=== PATIENT | female | born 1935 | race Caucasian/White ===

== ENCOUNTER 2017-06-13 10:24 | Inpatient (IN) | payer MEDICARE ==
[2017-06-13] MEDS ORDERED: oxyCODONE 5 MG Tab PO SCH (14:00)
[2017-06-13] MEDS: Acetaminophen 500 MG Tab PO SCH ×2 (14:11→21:06)
[2017-06-13] MEDS: oxyCODONE 5 MG Tab PO SCH ×2 (16:57→22:06)
[2017-06-13] MEDS: Ibuprofen 400 MG Tab PO SCH (18:09)
[2017-06-13] MEDS: metFORMIN 500 MG Tab PO SCH (18:10)
[2017-06-13] MEDS: Docusate Sodium 100 MG Cap PO SCH ×2 (21:05→21:13)
[2017-06-13] MEDS: Phenytoin 100 MG Cap.ER PO SCH (21:05)
[2017-06-13] MEDS: Latanoprost 0.005% Ophth Soln 2.5 ML Bottle EYEBOTH SCH (21:06)
[2017-06-13] MEDS: oxyCODONE ER 10 MG TAB.ER PO SCH (21:09)
[2017-06-14] MEDS: oxyCODONE 5 MG Tab PO SCH ×4 (06:04→22:38)
[2017-06-14] MEDS: Pantoprazole 40 MG Tab.CR PO SCH (06:06)
[2017-06-14] MEDS: metFORMIN 500 MG Tab PO SCH ×2 (08:46→18:18)
[2017-06-14] MEDS: Ibuprofen 400 MG Tab PO SCH ×2 (08:47→18:17)
[2017-06-14] MEDS: Calcium Carbonate/Vitamin D3 1250 MG-200 Unit Tab PO SCH (08:49)
[2017-06-14] MEDS: Valsartan 160 MG Tab PO SCH (08:49)
[2017-06-14] MEDS: Docusate Sodium 100 MG Cap PO SCH ×2 (08:49→20:50)
[2017-06-14] MEDS: OXYBUTYNIN TD SCH (08:52)
[2017-06-14] MEDS: Aspirin 81 MG Tab.EC PO SCH (08:52)
[2017-06-14] MEDS: Hydrochlorothiazide 12.5 MG Cap PO SCH (08:54)
[2017-06-14] MEDS: oxyCODONE ER 10 MG TAB.ER PO SCH ×2 (08:59→20:50)
[2017-06-14] MEDS ORDERED: HYDROCHLOROTHIAZIDE PO SCH (09:00)
[2017-06-14] MEDS ORDERED: VALSARTAN PO SCH (09:00)
[2017-06-14] MEDS ORDERED: Non-Formulary Medication 1 Each (Lutein [Lutein] 6 MG) PO SCH (09:00)
[2017-06-14] MEDS: Acetaminophen 500 MG Tab PO SCH ×3 (09:01→20:51)
[2017-06-14] MEDS: Cholecalciferol (Vitamin D3) 1,000 Unit Tab PO SCH (09:02)
[2017-06-14] MEDS: Multivitamins, Therapeutic with Minerals Tab PO SCH (09:03)
[2017-06-14] MEDS: Phenytoin 100 MG Cap.ER PO SCH (20:51)
[2017-06-14] MEDS: Latanoprost 0.005% Ophth Soln 2.5 ML Bottle EYEBOTH SCH (20:52)
[2017-06-15] MEDS: oxyCODONE 5 MG Tab PO SCH ×4 (06:10→21:59)
[2017-06-15] MEDS: Pantoprazole 40 MG Tab.CR PO SCH (06:10)
[2017-06-15] MEDS: Ibuprofen 400 MG Tab PO SCH ×2 (08:51→17:51)
[2017-06-15] MEDS: OXYBUTYNIN TD SCH (08:52)
[2017-06-15] MEDS: Aspirin 81 MG Tab.EC PO SCH (08:52)
[2017-06-15] MEDS: Cholecalciferol (Vitamin D3) 1,000 Unit Tab PO SCH (08:53)
[2017-06-15] MEDS: Docusate Sodium 100 MG Cap PO SCH ×2 (08:53→21:47)
[2017-06-15] MEDS: Multivitamins, Therapeutic with Minerals Tab PO SCH (08:53)
[2017-06-15] MEDS: Acetaminophen 500 MG Tab PO SCH ×3 (08:54→21:50)
[2017-06-15] MEDS: metFORMIN 500 MG Tab PO SCH ×2 (09:10→17:51)
[2017-06-15] MEDS: Hydrochlorothiazide 12.5 MG Cap PO SCH (09:11)
[2017-06-15] MEDS: Valsartan 160 MG Tab PO SCH (09:11)
[2017-06-15] MEDS: Calcium Carbonate/Vitamin D3 1250 MG-200 Unit Tab PO SCH (09:11)
[2017-06-15] MEDS: oxyCODONE ER 10 MG TAB.ER PO SCH ×2 (09:14→21:58)
[2017-06-15] MEDS: levETIRAcetam 250 MG Tab PO SCH ×2 (09:15→21:48)
[2017-06-15] MEDS: Calcitonin (Salmon) Nasal Spray 3.7 ML Bottle NAS SCH (09:16)
[2017-06-15] MEDS: Phenytoin 100 MG Cap.ER PO SCH (21:49)
[2017-06-15] MEDS: Latanoprost 0.005% Ophth Soln 2.5 ML Bottle EYEBOTH SCH (21:50)
[2017-06-16] MEDS: Pantoprazole 40 MG Tab.CR PO SCH (06:47)
[2017-06-16] MEDS: oxyCODONE 5 MG Tab PO SCH ×4 (06:47→22:22)
[2017-06-16] MEDS: metFORMIN 500 MG Tab PO SCH ×2 (09:07→17:43)
[2017-06-16] MEDS: Ibuprofen 400 MG Tab PO SCH ×2 (09:08→17:43)
[2017-06-16] MEDS: Calcium Carbonate/Vitamin D3 1250 MG-200 Unit Tab PO SCH (09:10)
[2017-06-16] MEDS: Docusate Sodium 100 MG Cap PO SCH ×2 (09:10→22:22)
[2017-06-16] MEDS: Calcitonin (Salmon) Nasal Spray 3.7 ML Bottle NAS SCH (09:10)
[2017-06-16] MEDS: Acetaminophen 500 MG Tab PO SCH ×3 (09:11→22:20)
[2017-06-16] MEDS: Valsartan 160 MG Tab PO SCH (09:11)
[2017-06-16] MEDS: Aspirin 81 MG Tab.EC PO SCH (09:12)
[2017-06-16] MEDS: levETIRAcetam 250 MG Tab PO SCH ×2 (09:12→22:21)
[2017-06-16] MEDS: OXYBUTYNIN TD SCH (09:12)
[2017-06-16] MEDS: Hydrochlorothiazide 12.5 MG Cap PO SCH (09:12)
[2017-06-16] MEDS: Multivitamins, Therapeutic with Minerals Tab PO SCH (09:13)
[2017-06-16] MEDS: Cholecalciferol (Vitamin D3) 1,000 Unit Tab PO SCH (09:13)
[2017-06-16] MEDS: oxyCODONE ER 10 MG TAB.ER PO SCH ×2 (09:35→22:21)
[2017-06-16] MEDS: Phenytoin 100 MG Cap.ER PO SCH (22:19)
[2017-06-16] MEDS: Latanoprost 0.005% Ophth Soln 2.5 ML Bottle EYEBOTH SCH (22:20)
[2017-06-17] MEDS: Pantoprazole 40 MG Tab.CR PO SCH (06:50)
[2017-06-17] MEDS: oxyCODONE 5 MG Tab PO SCH ×3 (06:54→17:17)
[2017-06-17] MEDS: metFORMIN 500 MG Tab PO SCH ×2 (08:25→18:38)
[2017-06-17] MEDS: Ibuprofen 400 MG Tab PO SCH (08:26)
[2017-06-17] MEDS: Docusate Sodium 100 MG Cap PO SCH ×2 (08:27→20:27)
[2017-06-17] MEDS: Calcium Carbonate/Vitamin D3 1250 MG-200 Unit Tab PO SCH (08:27)
[2017-06-17] MEDS: Valsartan 160 MG Tab PO SCH (08:28)
[2017-06-17] MEDS: Hydrochlorothiazide 12.5 MG Cap PO SCH (08:29)
[2017-06-17] MEDS: Aspirin 81 MG Tab.EC PO SCH (08:30)
[2017-06-17] MEDS: levETIRAcetam 250 MG Tab PO SCH (08:31)
[2017-06-17] MEDS: Calcitonin (Salmon) Nasal Spray 3.7 ML Bottle NAS SCH (08:32)
[2017-06-17] MEDS: Acetaminophen 500 MG Tab PO SCH ×3 (08:33→20:29)
[2017-06-17] MEDS: Multivitamins, Therapeutic with Minerals Tab PO SCH (08:33)
[2017-06-17] MEDS: Cholecalciferol (Vitamin D3) 1,000 Unit Tab PO SCH (08:33)
[2017-06-17] MEDS: OXYBUTYNIN TD SCH (08:42)
[2017-06-17] MEDS: oxyCODONE ER 10 MG TAB.ER PO SCH (08:47)
--- NOTE | 2017-06-17 09:31 | PCM.HP ---
H&P History of Present Illness - General Date of Service: 06/17/17 Admit Problem/Dx: Admission Diagnosis/Problem Admission Diagnosis/Problem Back pain Source of Information: Patient, Old Records - History of Present Illness Initial Comments - Free Text/Narative: 82-year-old female admitted to swing bed for rehabilitation. She has a history of chronic back pain was [place] last week due to pelvic pain and sacral pain and was found to have pelvic insufficiency fractures. This is due to severe osteoporosis. Her pain is managed oxycodone but she still complains of significant pain on movement. To gets down the right leg. She also has a history of type 2 diabetes, hypertension, stable she has been constipated chronically because of acute use. She denies any fever chills or urinary symptoms. She has a history of seizure disorder possibly from a CVA 9 years ago and has been taking Dilantin. This was discontinued the [facility] and she is currently not Because it is thought to contribute to osteoporosis. Disposition in view of the history and physical and discharge summary, calcitonin was started for pain control but this was discontinued on discharge because it was not helping. Lower Back Pain Score (Numeric/FACES): 4 saccral area Pain Score (Numeric/FACES): 10 denies when asked Pain Score (Numeric/FACES): 0 - Related Data Allergies/Adverse Reactions: Allergies Allergy/AdvReac Type Severity Reaction Status Date / Time Sulfa (Sulfonamide Allergy Hives Verified 06/13/17 13:24 Antibiotics) Home Medications: Home Meds Acetaminophen [Acetaminophen Extra Strength] 1,000 mg PO TID 06/13/17 [History] Aspirin [Halfprin] 81 mg PO DAILY 06/13/17 [History] Calcium Carbonate/Vitamin D3 [Calcium 600 + Vit D 400 Tablet] 1 each PO DAILY [History] Cholecalciferol (Vitamin D3) [Vitamin D3] 2,000 unit PO DAILY 06/13/17 [History] Docusate Sodium [Colace] 100 mg PO BID 06/13/17 [History] Ibuprofen 400 mg PO BIDMEALS 06/13/17 [History] Latanoprost [Xalatan 0.005% Ophth Soln] 1 drop EYEBOTH BEDTIME 06/13/17 [History ] Lutein 6 mg PO DAILY 06/13/17 [History] Multivit-Min/FA/Lycopene/Lut [Hm Complete 50+ Tablet] 1 each PO DAILY 06/13/17 [ History] Omeprazole 20 mg PO DAILY@0600 06/13/17 [History] Oxybutynin Chloride [Gelnique] 1 gm TD DAILY 06/13/17 [History] Phenytoin Sodium Extended [Dilantin] 300 mg PO BEDTIME 06/13/17 [History] Solifenacin [Vesicare] 5 mg PO DAILY 06/13/17 [History] Valsartan/Hydrochlorothiazide [Diovan Hct 160-12.5 mg Tab] 1 each PO DAILY 06/13 [History] metFORMIN [Glucophage] 500 mg PO BIDMEALS 06/13/17 [History] oxyCODONE 7.5 mg PO QID 06/13/17 [History] oxyCODONE ER [OxyCONTIN] 10 mg PO BIDMEALS 06/13/17 [History] Past Medical History HEENT History: Reports: Cataract Cardiovascular History: Reports: Hypertension Respiratory History: Reports: Asthma Genitourinary History: Reports: Urinary Incontinence [employer] History: Reports: Musculoskeletal History: Reports: Fracture, Other (See Below) Other Musculoskeletal History: L4 Compression Fractures. Neurological History: Reports: CVA Endocrine/Metabolic History: Reports: Diabetes, Type II Oncologic (Cancer) History: Reports: Uterine - Infectious Disease History Infectious Disease History: Reports: Chicken Pox, Shingles - Past Surgical History Head Surgeries/Procedures: Reports: None Female Surgical History: Reports: Hysterectomy Endocrine Surgical History: Reports: None Neurological Surgical History: Reports: None Musculoskeletal Surgical History: Reports: None, Other (See Below) Other Musculoskeletal Surgeries/Procedures:: Pin in L) Hip. Social & Family History - Family History Family Medical History: Noncontributory - Tobacco Use Smoking Status *Q: Never Smoker Years of Tobacco use: 10 Used Tobacco, but Quit: Yes Month Tobacco Last Used: YEARS AGO Second Hand Smoke Exposure: No - Caffeine Use Caffeine Use: Reports: Coffee - Recreational Drug Use Recreational Drug Use: No H&P Review of Systems - Review of Systems: Review Of Systems: ROS reveals no pertinent complaints other than HPI. Exam - Exam Exam: See Below - Vital Signs Vital Signs: Last Vital Signs Temp 98 F 06/16/17 08:00 Pulse 70 06/16/17 08:00 Resp 18 06/16/17 08:00 BP 154/68 H 06/17/17 08:28 Pulse Ox 94 L 06/15/17 09:10 Weight: 65.998 kg - Exam General: Alert, Oriented, 4 HEENT: PERRLA, Hearing Intact, Mucosa Moist & [place], Nares Patent, Normal Nasal Septum, Posterior Pharynx Clear, Conjunctiva Clear, EOMI, EACs Clear, TMs Clear Neck: Supple, Trachea Midline, 2 Lungs: Clear to Auscultation, Normal Respiratory Effort Cardiovascular: Regular Rate, Regular Rhythm GI/Abdominal Exam: Normal Bowel Sounds, Soft, Non-Tender, No Organomegaly, No Distention, No Abnormal Bruit, No Mass, Pelvis Stable (Female) Exam: Deferred Rectal (Female) Exam: Decreased Rectal Tone Back Exam: Muscle Spasm, Vertebral Tenderness Extremities: Normal Inspection, Normal Range of Motion, Non-Tender, No Pedal Edema, Normal Capillary Refill Skin: Warm, Dry, Intact Neurological: Cranial Nerves Intact, Reflexes Equal Bilateral Neuro Extensive - Mental Status: Alert, Oriented x3, Normal Mood/Affect, Normal Cognition Neuro Extensive - Motor, Sensory, Reflexes: CN II-XII Intact, Normal Gait, Normal Reflexes Psychiatric: Alert, Normal Affect, Normal Mood - Patient Data Lab Results Last 24 hrs: Laboratory Results - last 24 hr 06/17/17 Range/Units 06:48 POC Glucose 108 (80-116) mg/dL *Q Meaningful Use (ADM) - VTE *Q VTE Criteria *Q: - Stroke *Q Stroke Criteria *Q: - AMI *Q AMI Criteria *Q: - Problem List (1) Osteoporosis SNOMED Code(s): 76042057 ICD Code: M81.0 - AGE-RELATED OSTEOPOROSIS W/O CURRENT PATHOLOGICAL FRACTURE Status: Acute Current Visit: Yes Qualifiers: Osteoporosis type: age-related (2) Insufficiency fracture of pelvis SNOMED Code(s): 980799134 ICD Code: M84.454A - PATHOLOGICAL FRACTURE, PELVIS, INIT ENCNTR FOR FRACTURE Status: Acute Current Visit: Yes Qualifiers: Encounter type: subsequent encounter (3) HTN (hypertension) SNOMED Code(s): 18428385 ICD Code: I10 - ESSENTIAL (PRIMARY) HYPERTENSION Status: Chronic Current Visit: Yes Qualifiers: Hypertension type: essential hypertension Qualified Code(s): I10 - Essential (primary) hypertension (4) Constipation SNOMED Code(s): 79831426 ICD Code: K59.00 - CONSTIPATION, UNSPECIFIED Status: Acute Current Visit : Yes Qualifiers: Constipation type: drug induced constipation Qualified Code(s): K59.03 - Drug induced constipation (5) Diabetes type 2, controlled SNOMED Code(s): 57675130 ICD Code: E11.9 - TYPE 2 DIABETES MELLITUS WITHOUT COMPLICATIONS Status: Chronic Current Visit: Yes Qualifiers: Diabetes mellitus complication status: without complication (6) Chronic back pain greater than 3 months duration SNOMED Code(s): 278791532 ICD Code: M54.9 - DORSALGIA, UNSPECIFIED; G89.29 - OTHER CHRONIC PAIN Status: Chronic Current Visit: Yes Problem List Initiated/Reviewed/Updated: Yes Orders Last 24hrs: Active Orders 24 hr Category Date Time Status Alendronate [Fosamax] Med 06/17/17 09:30 Ordered 70 mg PO Q7D@0600 Celecoxib [CeleBREX] Med 06/17/17 09:30 Ordered 200 mg PO BID DULoxetine [Cymbalta] Med 06/17/17 09:30 Ordered 30 mg PO DAILY Phenytoin Med 07/11/17 21:00 Active 100 mg PO BEDTIME Phenytoin Med 06/27/17 21:00 Active 200 mg PO BEDTIME Medication Orders Acetaminophen (Tylenol Extra Strength) 1,[address] [facility] Last Admin: 06/17/17 08:33 Dose: 1,000 mg Admin: 06/16/17 22:20 Dose: 1,000 mg Admin: 06/16/17 13:45 Dose: 1,000 mg Admin: 06/16/17 09:11 Dose: 1,000 mg Admin: 06/15/17 21:50 Dose: 1,000 mg Admin: 06/15/17 14:24 Dose: 1,000 mg Admin: 06/15/17 08:54 Dose: 1,000 mg Admin: 06/14/17 20:51 Dose: 1,000 mg Admin: 06/14/17 13:33 Dose: 1,000 mg Admin: 06/14/17 09:01 Dose: 1,000 mg Admin: 06/13/17 21:06 Dose: 1,000 mg Admin: 06/13/17 14:11 Dose: 1,000 mg Alendronate Sodium (Fosamax) 70 mg PO Q7D@0600 [facility] Aspirin (Halfprin) [address] [facility] Last Admin: 06/17/17 08:30 Dose: 81 mg Admin: 06/16/17 09:12 Dose: 81 mg Admin: 06/15/17 08:52 Dose: 81 mg Admin: 06/14/17 08:52 Dose: 81 mg Calcium Carbonate (Calcium Carbonate/Vitamin D 1250 Mg-200 Unit) [address] [facility] Last Admin: 06/17/17 08:27 Dose: 1 tab Admin: 06/16/17 09:10 Dose: 1 tab Admin: 06/15/17 09:11 Dose: 1 tab Admin: 06/14/17 08:49 Dose: 1 tab Cholecalciferol (Vitamin D3) 2,[address] [facility] Last Admin: 06/17/17 08:33 Dose: 2,000 units Admin: 06/16/17 09:13 Dose: 2,000 units Admin: 06/15/17 08:53 Dose: 2,000 units Admin: 06/14/17 09:02 Dose: 2,000 units Docusate Sodium (Colace) [address] [facility] Last Admin: 06/17/17 08:27 Dose: 100 mg Admin: 06/16/17 22:22 Dose: 100 mg Admin: 06/16/17 09:10 Dose: 100 mg Admin: 06/15/17 21:47 Dose: 100 mg Admin: 06/15/17 08:53 Dose: 100 mg Admin: 06/14/17 20:50 Dose: Not Given Admin: 06/14/17 08:49 Dose: Not Given Admin: 06/13/17 21:13 Dose: Not Given Duloxetine HCl (Cymbalta) [address] [facility] Hydrochlorothiazide (Hydrochlorothiazide) 12.[address] [facility] Last Admin: 06/17/17 08:29 Dose: 12.5 mg Admin: 06/16/17 09:12 Dose: 12.5 mg Admin: 06/15/17 09:11 Dose: 12.5 mg Admin: 06/14/17 08:54 Dose: 12.5 mg Latanoprost (Xalatan 0.005% Ophth Soln) [address] [facility] Last Admin: 06/16/17 22:20 Dose: 1 drop Admin: 06/15/17 21:50 Dose: 1 drop Admin: 06/14/17 20:52 Dose: 1 drop Admin: 06/13/17 21:06 Dose: 1 drop Lutein (Lutein) [address] [facility] Last Admin: 06/17/17 08:31 Dose: 10 mg Admin: 06/16/17 09:12 Dose: 10 mg Admin: 06/15/17 09:16 Dose: 10 mg Metformin HCl (Glucophage) [address] [facility] Last Admin: 06/17/17 08:25 Dose: 500 mg Admin: 06/16/17 17:43 Dose: 500 mg Admin: 06/16/17 09:07 Dose: 500 mg Admin: 06/15/17 17:51 Dose: 500 mg Admin: 06/15/17 09:10 Dose: 500 mg Admin: 06/14/17 18:18 Dose: 500 mg Admin: 06/14/17 08:46 Dose: 500 mg Admin: 06/13/17 18:10 Dose: 500 mg Multivitamins/Minerals (Vitamins And Minerals) [address] [facility] Last Admin: 06/17/17 08:33 Dose: 1 tab Admin: 06/16/17 09:13 Dose: 1 tab Admin: 06/15/17 08:53 Dose: 1 tab Admin: 06/14/17 09:03 Dose: 1 tab Oxybutynin Chloride (Gelnique) [address] [facility] Last Admin: 06/17/17 08:42 Dose: 30 gm Admin: 06/16/17 09:12 Dose: 30 gm Admin: 06/15/17 08:52 Dose: 30 gm Admin: 06/14/17 08:52 Dose: 30 gm Oxycodone HCl (Oxycontin) [address] [facility] Last Admin: 06/17/17 08:47 Dose: 10 mg Admin: 06/16/17 22:21 Dose: 10 mg Admin: 06/16/17 09:35 Dose: 10 mg Admin: 06/15/17 21:58 Dose: 10 mg Admin: 06/15/17 09:14 Dose: 10 mg Admin: 06/14/17 20:50 Dose: 10 mg Admin: 06/14/17 08:59 Dose: 10 mg Admin: 06/13/17 21:09 Dose: 10 mg Oxycodone HCl (Oxycodone) 7.5 mg PO 0600,1300,1700,2200 [facility] Last Admin: 06/17/17 06:54 Dose: 7.5 mg Admin: 06/16/17 22:22 Dose: 7.5 mg Admin: 06/16/17 17:43 Dose: 7.5 mg Admin: 06/16/17 13:43 Dose: 7.5 mg Admin: 06/16/17 06:47 Dose: 7.5 mg Admin: 06/15/17 21:59 Dose: 7.5 mg Admin: 06/15/17 17:13 Dose: 7.5 mg Admin: 06/15/17 13:09 Dose: 7.5 mg Admin: 06/15/17 06:10 Dose: 7.5 mg Admin: 06/14/17 22:38 Dose: 7.5 mg Admin: 06/14/17 17:06 Dose: 7.5 mg Admin: 06/14/17 13:32 Dose: 7.5 mg Admin: 06/14/17 06:04 Dose: 7.5 mg Admin: 06/13/17 22:06 Dose: 7.5 mg Admin: 06/13/17 16:57 Dose: 7.5 mg Pantoprazole Sodium (Protonix) 40 mg PO DAILY@0600 [facility] Stop: 06/27/17 06:01 Last Admin: 06/17/17 06:50 Dose: 40 mg Admin: 06/16/17 06:47 Dose: 40 mg Admin: 06/15/17 06:10 Dose: 40 mg Admin: 06/14/17 06:06 Dose: 40 mg Phenytoin Sodium (Phenytoin) 300 mg PO BEDTIME [facility] Stop: 06/26/17 21:01 Last Admin: 06/16/17 22:19 Dose: 300 mg Admin: 06/15/17 21:49 Dose: 300 mg Admin: 06/14/17 20:51 Dose: 300 mg Admin: 06/13/17 21:05 Dose: 300 mg Phenytoin Sodium (Phenytoin) 200 mg PO BEDTIME [facility] Stop: 07/10/17 21:01 Phenytoin Sodium (Phenytoin) 100 mg PO BEDTIME [facility] Stop: 07/24/17 21:01 Solifenacin (Vesicare) [address] [facility] Last Admin: 06/17/17 08:33 Dose: 5 mg Admin: 06/16/17 09:12 Dose: 5 mg Admin: 06/15/17 09:17 Dose: 5 mg Admin: 06/14/17 09:02 Dose: 5 mg Valsartan (Diovan) 160 mg PO DAILY [facility] Last Admin: 06/17/17 08:28 Dose: 160 mg Admin: 06/16/17 09:11 Dose: 160 mg Admin: 06/15/17 09:11 Dose: 160 mg Admin: 06/14/17 08:49 Dose: 160 mg Assessment/Plan Comment:: I have discontinued Keppra, and calcitonin. I will also discontinue Motrin in favor of Celebrex for chronic pain. Additionally have added Cymbalta to help with the pain. I will treat the osteoporosis with Fosamax every week. Physical and open patient therapy on board to help with rehabilitation. MiraLAX will be uses when necessary to help with constipation.
[2017-06-17] MEDS ORDERED: Polyethylene Glycol 3350 Powder 17 GM Packet PO PRN (09:32)
[2017-06-17] MEDS: Celecoxib 200 MG Cap PO SCH ×2 (10:38→20:27)
[2017-06-17] MEDS: DULoxetine 30 MG Cap PO SCH (10:38)
[2017-06-17] MEDS: fentaNYL 25 MCG/HR Transdermal Patch TRDERM SCH (16:48)
[2017-06-17] MEDS: Phenytoin 100 MG Cap.ER PO SCH (20:28)
[2017-06-17] MEDS: Latanoprost 0.005% Ophth Soln 2.5 ML Bottle EYEBOTH SCH (20:30)
[2017-06-17] MEDS: oxyCODONE 5 MG Tab PO PRN (22:06)
[2017-06-18] MEDS: Alendronate 70 MG Tab PO SCH (05:11)
[2017-06-18] MEDS: Pantoprazole 40 MG Tab.CR PO SCH (06:12)
[2017-06-18] MEDS: metFORMIN 500 MG Tab PO SCH ×2 (10:18→17:37)
[2017-06-18] MEDS: Calcium Carbonate/Vitamin D3 1250 MG-200 Unit Tab PO SCH (10:19)
[2017-06-18] MEDS: Celecoxib 200 MG Cap PO SCH ×2 (10:19→20:35)
[2017-06-18] MEDS: Docusate Sodium 100 MG Cap PO SCH ×2 (10:20→20:35)
[2017-06-18] MEDS: Valsartan 160 MG Tab PO SCH (10:20)
[2017-06-18] MEDS: DULoxetine 30 MG Cap PO SCH (10:20)
[2017-06-18] MEDS: OXYBUTYNIN TD SCH (10:22)
[2017-06-18] MEDS: Aspirin 81 MG Tab.EC PO SCH (10:24)
[2017-06-18] MEDS: Multivitamins, Therapeutic with Minerals Tab PO SCH (10:24)
[2017-06-18] MEDS: Hydrochlorothiazide 25 MG Tab PO SCH (10:25)
[2017-06-18] MEDS: Acetaminophen 500 MG Tab PO SCH ×3 (10:25→20:36)
[2017-06-18] MEDS: Cholecalciferol (Vitamin D3) 1,000 Unit Tab PO SCH (10:26)
[2017-06-18] MEDS: oxyCODONE 5 MG Tab PO PRN ×2 (10:29→17:37)
[2017-06-18] MEDS: Latanoprost 0.005% Ophth Soln 2.5 ML Bottle EYEBOTH SCH (20:36)
[2017-06-18] MEDS: Phenytoin 100 MG Cap.ER PO SCH (20:36)
[2017-06-19] MEDS: Pantoprazole 40 MG Tab.CR PO SCH (05:34)
[2017-06-19] MEDS: oxyCODONE 5 MG Tab PO PRN ×3 (05:34→21:54)
[2017-06-19] MEDS: metFORMIN 500 MG Tab PO SCH ×2 (07:57→18:16)
[2017-06-19] MEDS: Docusate Sodium 100 MG Cap PO SCH ×2 (08:55→20:15)
[2017-06-19] MEDS: Calcium Carbonate/Vitamin D3 1250 MG-200 Unit Tab PO SCH (08:55)
[2017-06-19] MEDS: DULoxetine 30 MG Cap PO SCH (08:55)
[2017-06-19] MEDS: Celecoxib 200 MG Cap PO SCH ×2 (08:55→20:16)
[2017-06-19] MEDS: OXYBUTYNIN TD SCH (08:56)
[2017-06-19] MEDS: Valsartan 160 MG Tab PO SCH (08:56)
[2017-06-19] MEDS: Acetaminophen 500 MG Tab PO SCH ×3 (08:57→20:13)
[2017-06-19] MEDS: Cholecalciferol (Vitamin D3) 1,000 Unit Tab PO SCH (08:57)
[2017-06-19] MEDS: Multivitamins, Therapeutic with Minerals Tab PO SCH (08:57)
[2017-06-19] MEDS: Aspirin 81 MG Tab.EC PO SCH (08:57)
[2017-06-19] MEDS: Hydrochlorothiazide 25 MG Tab PO SCH (08:57)
[2017-06-19] MEDS: Latanoprost 0.005% Ophth Soln 2.5 ML Bottle EYEBOTH SCH (20:13)
[2017-06-19] MEDS: Phenytoin 100 MG Cap.ER PO SCH (20:14)
[2017-06-20] MEDS: Pantoprazole 40 MG Tab.CR PO SCH (07:00)
[2017-06-20] MEDS: metFORMIN 500 MG Tab PO SCH ×2 (08:17→17:21)
[2017-06-20] MEDS: Celecoxib 200 MG Cap PO SCH ×2 (08:17→21:59)
[2017-06-20] MEDS: Valsartan 160 MG Tab PO SCH (08:18)
[2017-06-20] MEDS: Aspirin 81 MG Tab.EC PO SCH (08:18)
[2017-06-20] MEDS: Calcium Carbonate/Vitamin D3 1250 MG-200 Unit Tab PO SCH (08:18)
[2017-06-20] MEDS: Docusate Sodium 100 MG Cap PO SCH ×2 (08:18→21:59)
[2017-06-20] MEDS: DULoxetine 30 MG Cap PO SCH (08:18)
[2017-06-20] MEDS: Multivitamins, Therapeutic with Minerals Tab PO SCH (08:19)
[2017-06-20] MEDS: Cholecalciferol (Vitamin D3) 1,000 Unit Tab PO SCH (08:19)
[2017-06-20] MEDS: Acetaminophen 500 MG Tab PO SCH ×3 (08:20→22:00)
[2017-06-20] MEDS: Hydrochlorothiazide 25 MG Tab PO SCH (08:20)
[2017-06-20] MEDS: OXYBUTYNIN TD SCH (08:35)
[2017-06-20] MEDS: oxyCODONE 5 MG Tab PO PRN ×2 (08:39→18:41)
[2017-06-20] MEDS: fentaNYL 25 MCG/HR Transdermal Patch TRDERM SCH (16:43)
[2017-06-20] MEDS ORDERED: Bisacodyl 10 MG Supp RECTAL PRN (17:25)
[2017-06-20] MEDS: Latanoprost 0.005% Ophth Soln 2.5 ML Bottle EYEBOTH SCH (22:00)
[2017-06-20] MEDS: Phenytoin 100 MG Cap.ER PO SCH (22:00)
[2017-06-21] MEDS: Pantoprazole 40 MG Tab.CR PO SCH (06:40)
[2017-06-21] MEDS: metFORMIN 500 MG Tab PO SCH ×2 (08:44→17:00)
[2017-06-21] MEDS: Calcium Carbonate/Vitamin D3 1250 MG-200 Unit Tab PO SCH (08:45)
[2017-06-21] MEDS: Cholecalciferol (Vitamin D3) 1,000 Unit Tab PO SCH (08:45)
[2017-06-21] MEDS: Valsartan 160 MG Tab PO SCH (08:46)
[2017-06-21] MEDS: Docusate Sodium 100 MG Cap PO SCH ×2 (08:47→21:36)
[2017-06-21] MEDS: Aspirin 81 MG Tab.EC PO SCH (08:47)
[2017-06-21] MEDS: Celecoxib 200 MG Cap PO SCH ×2 (08:47→21:36)
[2017-06-21] MEDS: Acetaminophen 500 MG Tab PO SCH ×3 (08:48→21:36)
[2017-06-21] MEDS: DULoxetine 30 MG Cap PO SCH (08:48)
[2017-06-21] MEDS: Multivitamins, Therapeutic with Minerals Tab PO SCH (08:48)
[2017-06-21] MEDS: Hydrochlorothiazide 25 MG Tab PO SCH (08:49)
[2017-06-21] MEDS: OXYBUTYNIN TD SCH (08:50)
[2017-06-21] MEDS: oxyCODONE 5 MG Tab PO PRN (09:48)
[2017-06-21] MEDS: Phenytoin 100 MG Cap.ER PO SCH (21:36)
[2017-06-21] MEDS: Latanoprost 0.005% Ophth Soln 2.5 ML Bottle EYEBOTH SCH (21:36)
[2017-06-22] MEDS: Pantoprazole 40 MG Tab.CR PO SCH (06:09)
[2017-06-22] MEDS: oxyCODONE 5 MG Tab PO PRN ×2 (06:13→12:33)
[2017-06-22] MEDS: Calcium Carbonate/Vitamin D3 1250 MG-200 Unit Tab PO SCH (08:13)
[2017-06-22] MEDS: metFORMIN 500 MG Tab PO SCH ×2 (08:13→17:39)
[2017-06-22] MEDS: Celecoxib 200 MG Cap PO SCH ×2 (08:14→20:50)
[2017-06-22] MEDS: DULoxetine 30 MG Cap PO SCH (08:14)
[2017-06-22] MEDS: Valsartan 160 MG Tab PO SCH (08:14)
[2017-06-22] MEDS: Docusate Sodium 100 MG Cap PO SCH ×2 (08:14→20:51)
[2017-06-22] MEDS: Hydrochlorothiazide 25 MG Tab PO SCH (08:15)
[2017-06-22] MEDS: Aspirin 81 MG Tab.EC PO SCH (08:15)
[2017-06-22] MEDS: Cholecalciferol (Vitamin D3) 1,000 Unit Tab PO SCH (08:16)
[2017-06-22] MEDS: Multivitamins, Therapeutic with Minerals Tab PO SCH (08:16)
[2017-06-22] MEDS: Acetaminophen 500 MG Tab PO SCH ×3 (08:16→20:49)
[2017-06-22] MEDS: OXYBUTYNIN TD SCH (08:17)
--- NOTE | 2017-06-22 16:57 | PCM.PN ---
- General Info Date of Service: 06/22/17 Admission Dx/Problem (Free Text): Patient complains of now right hip pain every time she moves or rolls over in bed. It's to the point where she can't stand up. Her back pain and left hip pain are not bothering her on the Duragesic and her by mouth oxycodone. She says she has little nausea she thinks from the oxycodone. Dysuria, pyuria, hematuria. - Patient Data Vitals - Most Recent: Last Vital Signs Temp 97.8 F 06/22/17 07:20 Pulse 100 06/22/17 07:20 Resp 18 06/22/17 07:20 BP 145/69 H 06/22/17 08:14 Pulse Ox 97 06/22/17 07:20 Weight - Most Recent: 149 lb 11.2 oz Lab Results Last 24 Hours: Laboratory Results - last 24 hr 06/22/17 Range/Units 06:23 POC Glucose 134 H (80-116) mg/dL Med Orders - Current: Current Medications Acetaminophen (Tylenol Extra Strength) 1,000 mg PO TID [facility] Last Admin: 06/22/17 14:44 Dose: 1,000 mg Alendronate Sodium (Fosamax) 70 mg PO Q7D@0530 [facility] Last Admin: 06/18/17 05:11 Dose: 70 mg Aspirin (Halfprin) 81 mg PO DAILY [facility] Last Admin: 06/22/17 08:15 Dose: 81 mg Bisacodyl (Dulcolax) 10 mg RECTAL DAILY PRN PRN Reason: Constipation Calcium Carbonate (Calcium Carbonate/Vitamin D 1250 Mg-200 Unit) 1 tab PO DAILY [facility] Last Admin: 06/22/17 08:13 Dose: 1 tab Celecoxib (Celebrex) 200 mg PO BID [facility] Last Admin: 06/22/17 08:14 Dose: 200 mg Cholecalciferol (Vitamin D3) 2,000 units PO DAILY [facility] Last Admin: 06/22/17 08:16 Dose: 2,000 units Docusate Sodium (Colace) 100 mg PO BID [facility] Last Admin: 06/22/17 08:14 Dose: 100 mg Duloxetine HCl (Cymbalta) 30 mg PO DAILY [facility] Last Admin: 06/22/17 08:14 Dose: 30 mg Fentanyl (Duragesic) 25 mcg TRDERM Q72H [facility] Last Admin: 06/20/17 16:43 Dose: 25 mcg Hydrochlorothiazide (Hydrochlorothiazide) 25 mg PO DAILY [facility] Last Admin: 06/22/17 08:15 Dose: 25 mg Latanoprost (Xalatan 0.005% Ophth Soln) 0 ml EYEBOTH BEDTIME [facility] Last Admin: 06/21/17 21:36 Dose: 1 drop Lutein (Lutein) 10 mg PO DAILY [facility] Last Admin: 06/22/17 08:16 Dose: 10 mg Metformin HCl (Glucophage) 500 mg PO BIDMEALS [facility] Last Admin: 06/22/17 08:13 Dose: 500 mg Multivitamins/Minerals (Vitamins And Minerals) 1 tab PO DAILY [facility] Last Admin: 06/22/17 08:16 Dose: 1 tab Oxybutynin Chloride (Gelnique) 0 gm TD DAILY [facility] Last Admin: 06/22/17 08:17 Dose: 30 gm Oxycodone HCl (Oxycodone) 5 mg PO Q6H PRN PRN Reason: BREAKTHROUGH PAIN Last Admin: 06/22/17 12:33 Dose: 5 mg Pantoprazole Sodium (Protonix) 40 mg PO DAILY@0600 [facility] Stop: 06/27/17 06:01 Last Admin: 06/22/17 06:09 Dose: 40 mg Phenytoin Sodium (Phenytoin) 300 mg PO BEDTIME [facility] Stop: 06/26/17 21:01 Last Admin: 06/21/17 21:36 Dose: 300 mg Phenytoin Sodium (Phenytoin) 200 mg PO BEDTIME [facility] Stop: 07/10/17 21:01 Phenytoin Sodium (Phenytoin) 100 mg PO BEDTIME [facility] Stop: 07/24/17 21:01 Polyethylene Glycol (Miralax) 17 gm PO DAILY PRN PRN Reason: Diarrhea Last Admin: 06/20/17 08:29 Dose: 17 gm Solifenacin (Vesicare) 5 mg PO DAILY [facility] Last Admin: 06/22/17 08:16 Dose: 5 mg Valsartan (Diovan) 160 mg PO DAILY [facility] Last Admin: 06/22/17 08:14 Dose: 160 mg Discontinued Medications Calcitonin [place] (Miacalcin Nasal [place]) 0 ml [place]YLE[place] DAILY [facility] Last Admin: 06/17/17 08:32 Dose: 1 spray Hydrochlorothiazide (Hydrochlorothiazide) 12.5 mg PO DAILY [facility] Last Admin: 06/17/17 08:29 Dose: 12.5 mg Ibuprofen (Motrin) 400 mg PO BIDMEALS [facility] Stop: 06/18/17 08:01 Last Admin: 06/17/17 08:26 Dose: 400 mg Levetiracetam (Keppra) 750 mg PO BID [facility] Last Admin: 06/17/17 08:31 Dose: 750 mg Non-Formulary Medication (Lutein [Lutein]) 6 mg PO DAILY [facility] Last Admin: 06/14/17 11:31 Dose: Not Given Oxycodone HCl (Oxycontin) 10 mg PO BID [facility] Last Admin: 06/17/17 08:47 Dose: 10 mg Oxycodone HCl (Oxycodone) 7.5 mg PO QID [facility] Last Admin: 06/13/17 14:10 Dose: 7.5 mg Oxycodone HCl (Oxycodone) 7.5 mg PO 0600,1300,1700,2200 [facility] Stop: 06/17/17 18:00 Last Admin: 06/17/17 17:17 Dose: 7.5 mg - Exam Neck: Supple Lungs: Normal Respiratory Effort Back Exam: Normal Inspection, Other (No pain over the pelvis on palpation.). No : Vertebral Tenderness Extremities: Other (Patient has pain on palpation over the greater trochanter in the right hip. She is very minimal and with range of motion Of the right hip. ) - Problem List & Annotations (1) Right hip pain SNOMED Code(s): 73881774 Code(s): M25.551 - PAIN IN RIGHT HIP Status: Acute Current Visit: Yes (2) Insufficiency fracture of pelvis SNOMED Code(s): 138854945 Code(s): M84.454A - PATHOLOGICAL FRACTURE, PELVIS, INIT ENCNTR FOR FRACTURE Status: Acute Current Visit: Yes Qualifiers: Encounter type: subsequent encounter (3) Osteoporosis SNOMED Code(s): 21932524 Code(s): M81.0 - AGE-RELATED OSTEOPOROSIS W/O CURRENT PATHOLOGICAL FRACTURE Status: Acute Current Visit: Yes Qualifiers: Osteoporosis type: age-related - Problem List Review Problem List Initiated/Reviewed/Updated: Yes - My Orders Last 24 Hours: My Active Orders 06/22/17 16:30 Hip Min 2V or 3V Rt [CR] Routine - Plan Plan:: 1. X-ray right hip. If that is negative consider injection to the right hip bursa. Injection will be done in the a.m. if needed. 2. Reevaluate short acting narcotics. 3. Continue PT/OT.
[2017-06-22] MEDS: oxyCODONE 5 MG Tab PO SCH ×2 (17:41→23:25)
[2017-06-22] MEDS: Latanoprost 0.005% Ophth Soln 2.5 ML Bottle EYEBOTH SCH (20:49)
[2017-06-22] MEDS: Phenytoin 100 MG Cap.ER PO SCH (20:50)
[2017-06-23] MEDS: Pantoprazole 40 MG Tab.CR PO SCH ×2 (06:06→06:19)
[2017-06-23] MEDS: oxyCODONE 5 MG Tab PO SCH ×3 (06:06→10:55)
[2017-06-23] MEDS ORDERED: Dexamethasone 4 MG/ML 5 ML MDV ONE (08:30)
[2017-06-23] MEDS: Ondansetron 4 MG Tab.DIS PO PRN ×2 (08:58→16:24)
[2017-06-23] MEDS: Calcium Carbonate/Vitamin D3 1250 MG-200 Unit Tab PO SCH (08:59)
[2017-06-23] MEDS: Celecoxib 200 MG Cap PO SCH ×2 (08:59→21:39)
[2017-06-23] MEDS: metFORMIN 500 MG Tab PO SCH ×2 (08:59→18:44)
[2017-06-23] MEDS: Docusate Sodium 100 MG Cap PO SCH ×3 (08:59→21:43)
[2017-06-23] MEDS: Multivitamins, Therapeutic with Minerals Tab PO SCH (09:00)
[2017-06-23] MEDS: Aspirin 81 MG Tab.EC PO SCH (09:00)
[2017-06-23] MEDS: Acetaminophen 500 MG Tab PO SCH ×3 (09:00→21:40)
[2017-06-23] MEDS: Hydrochlorothiazide 25 MG Tab PO SCH (09:00)
[2017-06-23] MEDS: OXYBUTYNIN TD SCH (09:01)
[2017-06-23] MEDS: Cholecalciferol (Vitamin D3) 1,000 Unit Tab PO SCH (09:01)
[2017-06-23] MEDS: Valsartan 160 MG Tab PO SCH (09:02)
[2017-06-23] MEDS: DULoxetine 30 MG Cap PO SCH (09:02)
--- NOTE | 2017-06-23 09:29 | PCM.PN ---
- General Info Date of Service: 06/23/17 Admission Dx/Problem (Free Text): Cells right hip pain. Hurts when she moves. She denies fevers, chills. - Patient Data Vitals - Most Recent: Last Vital Signs Temp 98.0 F 06/23/17 08:30 Pulse 97 06/23/17 08:30 Resp 18 06/23/17 08:30 BP 140/58 L 06/23/17 09:02 Pulse Ox 94 L 06/23/17 08:30 Weight - Most Recent: 149 lb 11.2 oz Lab Results Last 24 Hours: Laboratory Results - last 24 hr 06/23/17 Range/Units 06:18 POC Glucose 126 H (80-116) mg/dL Med Orders - Current: Current Medications Acetaminophen (Tylenol Extra Strength) 1,000 mg PO TID [facility] Last Admin: 06/23/17 09:00 Dose: 1,000 mg Alendronate Sodium (Fosamax) 70 mg PO Q7D@0530 [facility] Last Admin: 06/18/17 05:11 Dose: 70 mg Aspirin (Halfprin) 81 mg PO DAILY [facility] Last Admin: 06/23/17 09:00 Dose: 81 mg Bisacodyl (Dulcolax) 10 mg RECTAL DAILY PRN PRN Reason: Constipation Calcium Carbonate (Calcium Carbonate/Vitamin D 1250 Mg-200 Unit) 1 tab PO DAILY [facility] Last Admin: 06/23/17 08:59 Dose: 1 tab Celecoxib (Celebrex) 200 mg PO BID [facility] Last Admin: 06/23/17 08:59 Dose: 200 mg Cholecalciferol (Vitamin D3) 2,000 units PO DAILY [facility] Last Admin: 06/23/17 09:01 Dose: 2,000 units Docusate Sodium (Colace) 100 mg PO BID [facility] Last Admin: 06/23/17 09:12 Dose: Not Given Duloxetine HCl (Cymbalta) 30 mg PO DAILY [facility] Last Admin: 06/23/17 09:02 Dose: 30 mg Hydrochlorothiazide (Hydrochlorothiazide) 25 mg PO DAILY [facility] Last Admin: 06/23/17 09:00 Dose: 25 mg Latanoprost (Xalatan 0.005% Ophth Soln) 0 ml EYEBOTH BEDTIME [facility] Last Admin: 06/22/17 20:49 Dose: 1 drop Lutein (Lutein) 10 mg PO DAILY [facility] Last Admin: 06/23/17 09:00 Dose: 10 mg Metformin HCl (Glucophage) 500 mg PO BIDMEALS [facility] Last Admin: 06/23/17 08:59 Dose: 500 mg Multivitamins/Minerals (Vitamins And Minerals) 1 tab PO DAILY [facility] Last Admin: 06/23/17 09:00 Dose: 1 tab Ondansetron HCl (Zofran Odt) 4 mg PO Q6H PRN PRN Reason: Nausea/Vomiting Last Admin: 06/23/17 08:58 Dose: 4 mg Oxybutynin Chloride (Gelnique) 0 gm TD DAILY [facility] Last Admin: 06/23/17 09:01 Dose: 30 gm Oxycodone HCl (Oxycodone) 5 mg PO Q6H [facility] Last Admin: 06/23/17 06:18 Dose: Not Given Pantoprazole Sodium (Protonix) 40 mg PO DAILY@0600 [facility] Stop: 06/27/17 06:01 Last Admin: 06/23/17 06:19 Dose: Not Given Phenytoin Sodium (Phenytoin) 300 mg PO BEDTIME [facility] Stop: 06/26/17 21:01 Last Admin: 06/22/17 20:50 Dose: 300 mg Phenytoin Sodium (Phenytoin) 200 mg PO BEDTIME [facility] Stop: 07/10/17 21:01 Phenytoin Sodium (Phenytoin) 100 mg PO BEDTIME [facility] Stop: 07/24/17 21:01 Polyethylene Glycol (Miralax) 17 gm PO DAILY PRN PRN Reason: Diarrhea Last Admin: 06/20/17 08:29 Dose: 17 gm Solifenacin (Vesicare) 5 mg PO DAILY [facility] Last Admin: 06/23/17 09:01 Dose: 5 mg Valsartan (Diovan) 160 mg PO DAILY [facility] Last Admin: 06/23/17 09:02 Dose: 160 mg Discontinued Medications Calcitonin [place] (Miacalcin Nasal [place]) 0 ml KYLEIGH DAILY [facility] Last Admin: 06/17/17 08:32 Dose: 1 spray Dexamethasone (Dexamethasone) 8 mg .XX ONETIME ONE Stop: 06/23/17 08:31 Fentanyl (Duragesic) 25 mcg TRDERM Q72H [facility] Last Admin: 06/20/17 16:43 Dose: 25 mcg Hydrochlorothiazide (Hydrochlorothiazide) 12.5 mg PO DAILY [facility] Last Admin: 06/17/17 08:29 Dose: 12.5 mg Ibuprofen (Motrin) 400 mg PO BIDMEALS [facility] Stop: 06/18/17 08:01 Last Admin: 06/17/17 08:26 Dose: 400 mg Levetiracetam (Keppra) 750 mg PO BID [facility] Last Admin: 06/17/17 08:31 Dose: 750 mg Non-Formulary Medication (Lutein [Lutein]) 6 mg PO DAILY [facility] Last Admin: 06/14/17 11:31 Dose: Not Given Oxycodone HCl (Oxycontin) 10 mg PO BID [facility] Last Admin: 06/17/17 08:47 Dose: 10 mg Oxycodone HCl (Oxycodone) 7.5 mg PO QID [facility] Last Admin: 06/13/17 14:10 Dose: 7.5 mg Oxycodone HCl (Oxycodone) 7.5 mg PO 0600,1300,1700,2200 [facility] Stop: 06/17/17 18:00 Last Admin: 06/17/17 17:17 Dose: 7.5 mg Oxycodone HCl (Oxycodone) 5 mg PO Q6H PRN PRN Reason: BREAKTHROUGH PAIN Last Admin: 06/22/17 12:33 Dose: 5 mg - Exam Lungs: Normal Respiratory Effort Extremities: Other (Right hip pain on palpation) - Problem List & Annotations (1) Right hip pain SNOMED Code(s): 36642063 Code(s): M25.551 - PAIN IN RIGHT HIP Status: Acute Current Visit: Yes (2) Insufficiency fracture of pelvis SNOMED Code(s): 158334042 Code(s): M84.454A - PATHOLOGICAL FRACTURE, PELVIS, INIT ENCNTR FOR FRACTURE Status: Acute Current Visit: Yes Qualifiers: Encounter type: subsequent encounter (3) Osteoporosis SNOMED Code(s): 46579739 Code(s): M81.0 - AGE-RELATED OSTEOPOROSIS W/O CURRENT PATHOLOGICAL FRACTURE Status: Acute Current Visit: Yes Qualifiers: Osteoporosis type: age-related - Problem List Review Problem List Initiated/Reviewed/Updated: Yes - My Orders Last 24 Hours: My Active Orders 06/22/17 16:30 Hip Min 2V or 3V Rt [CR] Routine 06/22/17 17:00 oxyCODONE 5 mg PO Q6H 06/23/17 08:33 Ondansetron [Zofran ODT] 4 mg PO Q6H PRN 06/23/17 09:22 Lwr Ext Joint wo Cont Rt [MR] Routine Pelvis wo Cont [MR] Routine 06/23/17 09:25 fentaNYL [Duragesic] 50 mcg TRDERM Q72H - Plan Plan:: 1. X-ray right hip shows a old ramus fracture. Hip joint looks good with mild arthritis. 2. Will proceed with a right hip bursa injection. Risks and benefits point the patient. She was proceed. Timeout was done and the patient's name and site were identified. Patient was placed in the left side. Took Betadine and clean the right hip 3. Sterile gloves and palpated out the most painful spot. And took a 25-gauge spinal needle with 2 mL of dexamethasone and 8 mL 1% lidocaine and place a down to the bone retracted back and place a medicine. The patient did not have any relief. Blood loss none and complications none. 3. I will proceed to MRI of the right hip and pelvis. 4. Zofran for nausea. 5. Increase Duragesic to 50 g every 3 days.
[2017-06-23] MEDS: fentaNYL 50 MCG/HR Transdermal Patch TRDERM SCH (10:45)
[2017-06-23] MEDS: Acetaminophen/HYDROcodone 325-10 MG Tab PO SCH ×3 (11:22→23:03)
--- NOTE | 2017-06-23 11:49 | CR ---
INDICATION: Pain in right hip area. RIGHT HIP: Frontal and lateral views of the right hip were obtained 2016. No comparisons were available. Mild degenerative changes are noted at the right hip joint. The hip joint space is well maintained despite the mild hypertrophic degenerative changes. Transverse fractures are noted through the inferior and superior pubic rami with offset of the superior pubic ramus fracture site of approximately 9.7 mm, the lateral fracture fragment cranially offset with respect to the medial fracture fragment. The inferior pubic ramus fracture fragments are relatively well positioned and aligned. These images are compared with a 3-view pelvis examination from 02/24/2017, which showed pubic rami fractures superior and inferior in a similar location on the left. The right pubic rami, however, were intact in appearance at the time of the previous examination of February 2017. IMPRESSION: 1. Acute or subacute fractures of the superior and inferior pubic rami on the right, with some offset of the superior pubic ramus fracture site. 2. Degenerative changes at the right hip joint of mild to moderate degree, with the joint space well maintained. MTDD
[2017-06-23] MEDS: Phenytoin 100 MG Cap.ER PO SCH (21:40)
[2017-06-23] MEDS: Latanoprost 0.005% Ophth Soln 2.5 ML Bottle EYEBOTH SCH (21:40)
[2017-06-24] MEDS: Pantoprazole 40 MG Tab.CR PO SCH (06:00)
[2017-06-24] MEDS: Acetaminophen/HYDROcodone 325-10 MG Tab PO SCH ×4 (06:00→23:33)
[2017-06-24] MEDS: metFORMIN 500 MG Tab PO SCH ×2 (09:05→17:25)
[2017-06-24] MEDS: DULoxetine 30 MG Cap PO SCH (09:06)
[2017-06-24] MEDS: Celecoxib 200 MG Cap PO SCH ×2 (09:06→21:46)
[2017-06-24] MEDS: OXYBUTYNIN TD SCH (09:07)
[2017-06-24] MEDS: Multivitamins, Therapeutic with Minerals Tab PO SCH (09:07)
[2017-06-24] MEDS: Hydrochlorothiazide 25 MG Tab PO SCH (09:07)
[2017-06-24] MEDS: Aspirin 81 MG Tab.EC PO SCH (09:07)
[2017-06-24] MEDS: Cholecalciferol (Vitamin D3) 1,000 Unit Tab PO SCH (09:08)
[2017-06-24] MEDS: Acetaminophen 500 MG Tab PO SCH ×3 (09:08→21:46)
[2017-06-24] MEDS: Calcium Carbonate/Vitamin D3 1250 MG-200 Unit Tab PO SCH (09:10)
[2017-06-24] MEDS: Docusate Sodium 100 MG Cap PO SCH ×3 (09:39→21:48)
[2017-06-24] MEDS: Valsartan 160 MG Tab PO SCH (09:39)
--- NOTE | 2017-06-24 16:35 | PCM.SN ---
- Free Text/Narrative Note: MRI shows torn gluteus muscles of the patches into the right greater trochanter. These results related to the family and the patient. Hopefully physical therapy can work with her in regards to her pain.
[2017-06-24] MEDS: Latanoprost 0.005% Ophth Soln 2.5 ML Bottle EYEBOTH SCH (21:46)
[2017-06-24] MEDS: Phenytoin 100 MG Cap.ER PO SCH (21:46)
[2017-06-25] MEDS: Alendronate 70 MG Tab PO SCH (06:00)
[2017-06-25] MEDS: Pantoprazole 40 MG Tab.CR PO SCH (06:00)
[2017-06-25] MEDS: Acetaminophen/HYDROcodone 325-10 MG Tab PO SCH ×4 (06:00→22:35)
[2017-06-25] MEDS: OXYBUTYNIN TD SCH (08:53)
[2017-06-25] MEDS: Calcium Carbonate/Vitamin D3 1250 MG-200 Unit Tab PO SCH (08:54)
[2017-06-25] MEDS: Celecoxib 200 MG Cap PO SCH ×2 (08:54→21:09)
[2017-06-25] MEDS: Aspirin 81 MG Tab.EC PO SCH (08:54)
[2017-06-25] MEDS: metFORMIN 500 MG Tab PO SCH ×2 (08:54→17:10)
[2017-06-25] MEDS: DULoxetine 30 MG Cap PO SCH (08:54)
[2017-06-25] MEDS: Valsartan 160 MG Tab PO SCH (08:54)
[2017-06-25] MEDS: Hydrochlorothiazide 25 MG Tab PO SCH (08:54)
[2017-06-25] MEDS: Acetaminophen 500 MG Tab PO SCH ×3 (08:55→21:09)
[2017-06-25] MEDS: Cholecalciferol (Vitamin D3) 1,000 Unit Tab PO SCH (08:55)
[2017-06-25] MEDS: Multivitamins, Therapeutic with Minerals Tab PO SCH (08:55)
[2017-06-25] MEDS: Docusate Sodium 100 MG Cap PO SCH ×2 (08:58→21:09)
[2017-06-25] MEDS: Ondansetron 4 MG Tab.DIS PO PRN (11:05)
[2017-06-25] MEDS: Latanoprost 0.005% Ophth Soln 2.5 ML Bottle EYEBOTH SCH (21:09)
[2017-06-25] MEDS: Phenytoin 100 MG Cap.ER PO SCH (21:09)
[2017-06-26] MEDS: Acetaminophen/HYDROcodone 325-10 MG Tab PO SCH ×4 (06:04→22:50)
[2017-06-26] MEDS: Pantoprazole 40 MG Tab.CR PO SCH (06:05)
[2017-06-26] MEDS: Calcium Carbonate/Vitamin D3 1250 MG-200 Unit Tab PO SCH (08:32)
[2017-06-26] MEDS: metFORMIN 500 MG Tab PO SCH ×2 (08:32→17:16)
[2017-06-26] MEDS: Celecoxib 200 MG Cap PO SCH ×2 (08:32→20:27)
[2017-06-26] MEDS: Multivitamins, Therapeutic with Minerals Tab PO SCH (08:33)
[2017-06-26] MEDS: Hydrochlorothiazide 25 MG Tab PO SCH (08:33)
[2017-06-26] MEDS: Docusate Sodium 100 MG Cap PO SCH ×3 (08:33→20:31)
[2017-06-26] MEDS: Aspirin 81 MG Tab.EC PO SCH (08:33)
[2017-06-26] MEDS: Valsartan 160 MG Tab PO SCH (08:34)
[2017-06-26] MEDS: Acetaminophen 500 MG Tab PO SCH ×3 (08:34→20:29)
[2017-06-26] MEDS: DULoxetine 30 MG Cap PO SCH (08:34)
[2017-06-26] MEDS: Cholecalciferol (Vitamin D3) 1,000 Unit Tab PO SCH (08:35)
[2017-06-26] MEDS: OXYBUTYNIN TD SCH (08:35)
[2017-06-26] MEDS: fentaNYL 50 MCG/HR Transdermal Patch TRDERM SCH (09:50)
[2017-06-26] MEDS: Phenytoin 100 MG Cap.ER PO SCH (20:29)
[2017-06-26] MEDS: Latanoprost 0.005% Ophth Soln 2.5 ML Bottle EYEBOTH SCH (20:29)
[2017-06-27] MEDS: Acetaminophen/HYDROcodone 325-10 MG Tab PO SCH ×4 (06:07→22:38)
[2017-06-27] MEDS: Pantoprazole 40 MG Tab.CR PO SCH (06:19)
[2017-06-27] MEDS: metFORMIN 500 MG Tab PO SCH ×2 (09:02→17:25)
[2017-06-27] MEDS: Cholecalciferol (Vitamin D3) 1,000 Unit Tab PO SCH (09:04)
[2017-06-27] MEDS: Acetaminophen 500 MG Tab PO SCH ×3 (09:04→21:24)
[2017-06-27] MEDS: Valsartan 160 MG Tab PO SCH (09:04)
[2017-06-27] MEDS: Aspirin 81 MG Tab.EC PO SCH (09:04)
[2017-06-27] MEDS: Docusate Sodium 100 MG Cap PO SCH ×2 (09:04→21:23)
[2017-06-27] MEDS: Multivitamins, Therapeutic with Minerals Tab PO SCH (09:04)
[2017-06-27] MEDS: Celecoxib 200 MG Cap PO SCH ×2 (09:05→21:23)
[2017-06-27] MEDS: Hydrochlorothiazide 25 MG Tab PO SCH (09:05)
[2017-06-27] MEDS: DULoxetine 30 MG Cap PO SCH (09:05)
[2017-06-27] MEDS: Calcium Carbonate/Vitamin D3 1250 MG-200 Unit Tab PO SCH (09:05)
[2017-06-27] MEDS: OXYBUTYNIN TD SCH (09:06)
[2017-06-27] MEDS: Phenytoin 100 MG Cap.ER PO SCH (21:24)
[2017-06-27] MEDS: Latanoprost 0.005% Ophth Soln 2.5 ML Bottle EYEBOTH SCH (21:24)
[2017-06-28] MEDS: Acetaminophen/HYDROcodone 325-10 MG Tab PO SCH ×4 (05:25→22:52)
[2017-06-28] MEDS: Calcium Carbonate/Vitamin D3 1250 MG-200 Unit Tab PO SCH (08:44)
[2017-06-28] MEDS: metFORMIN 500 MG Tab PO SCH ×2 (08:44→17:40)
[2017-06-28] MEDS: DULoxetine 30 MG Cap PO SCH (08:44)
[2017-06-28] MEDS: Cholecalciferol (Vitamin D3) 1,000 Unit Tab PO SCH (08:45)
[2017-06-28] MEDS: Hydrochlorothiazide 25 MG Tab PO SCH (08:45)
[2017-06-28] MEDS: Acetaminophen 500 MG Tab PO SCH ×3 (08:45→21:04)
[2017-06-28] MEDS: Valsartan 160 MG Tab PO SCH (08:46)
[2017-06-28] MEDS: Docusate Sodium 100 MG Cap PO SCH ×2 (08:46→21:04)
[2017-06-28] MEDS: Aspirin 81 MG Tab.EC PO SCH (08:47)
[2017-06-28] MEDS: Celecoxib 200 MG Cap PO SCH ×2 (08:47→21:04)
[2017-06-28] MEDS: OXYBUTYNIN TD SCH (08:47)
[2017-06-28] MEDS: Multivitamins, Therapeutic with Minerals Tab PO SCH (08:48)
[2017-06-28] MEDS: Phenytoin 100 MG Cap.ER PO SCH (21:03)
[2017-06-28] MEDS: Latanoprost 0.005% Ophth Soln 2.5 ML Bottle EYEBOTH SCH (21:04)
[2017-06-29] MEDS: Acetaminophen/HYDROcodone 325-10 MG Tab PO SCH ×4 (05:14→22:36)
[2017-06-29] MEDS: Cholecalciferol (Vitamin D3) 1,000 Unit Tab PO SCH (08:44)
[2017-06-29] MEDS: DULoxetine 30 MG Cap PO SCH (08:44)
[2017-06-29] MEDS: Calcium Carbonate/Vitamin D3 1250 MG-200 Unit Tab PO SCH (08:44)
[2017-06-29] MEDS: metFORMIN 500 MG Tab PO SCH ×2 (08:44→17:18)
[2017-06-29] MEDS: Multivitamins, Therapeutic with Minerals Tab PO SCH (08:44)
[2017-06-29] MEDS: Aspirin 81 MG Tab.EC PO SCH (08:45)
[2017-06-29] MEDS: Acetaminophen 500 MG Tab PO SCH ×3 (08:45→20:05)
[2017-06-29] MEDS: Hydrochlorothiazide 25 MG Tab PO SCH (08:45)
[2017-06-29] MEDS: Valsartan 160 MG Tab PO SCH (08:46)
[2017-06-29] MEDS: OXYBUTYNIN TD SCH (08:47)
[2017-06-29] MEDS: Docusate Sodium 100 MG Cap PO SCH ×2 (08:48→20:03)
[2017-06-29] MEDS: fentaNYL 50 MCG/HR Transdermal Patch TRDERM SCH (08:54)
[2017-06-29] MEDS: Celecoxib 200 MG Cap PO SCH ×2 (10:17→20:02)
[2017-06-29] MEDS: Latanoprost 0.005% Ophth Soln 2.5 ML Bottle EYEBOTH SCH (20:01)
[2017-06-29] MEDS: Phenytoin 100 MG Cap.ER PO SCH (20:04)
[2017-06-30] MEDS: Acetaminophen/HYDROcodone 325-10 MG Tab PO SCH (06:00)
[2017-06-30] MEDS: Acetaminophen 500 MG Tab PO SCH ×3 (08:20→20:39)
[2017-06-30] MEDS: metFORMIN 500 MG Tab PO SCH ×2 (08:20→18:43)
[2017-06-30] MEDS: Cholecalciferol (Vitamin D3) 1,000 Unit Tab PO SCH (08:20)
[2017-06-30] MEDS: Valsartan 160 MG Tab PO SCH (08:20)
[2017-06-30] MEDS: Calcium Carbonate/Vitamin D3 1250 MG-200 Unit Tab PO SCH (08:21)
[2017-06-30] MEDS: Multivitamins, Therapeutic with Minerals Tab PO SCH (08:21)
[2017-06-30] MEDS: Aspirin 81 MG Tab.EC PO SCH (08:21)
[2017-06-30] MEDS: Hydrochlorothiazide 25 MG Tab PO SCH (08:21)
[2017-06-30] MEDS: OXYBUTYNIN TD SCH (08:22)
[2017-06-30] MEDS: Docusate Sodium 100 MG Cap PO SCH ×2 (08:22→20:38)
[2017-06-30] MEDS: DULoxetine 30 MG Cap PO SCH (08:22)
[2017-06-30] MEDS ORDERED: Acetaminophen/HYDROcodone 325-10 MG Tab PO PRN (08:35)
[2017-06-30] MEDS: Celecoxib 200 MG Cap PO SCH ×2 (09:25→20:38)
[2017-06-30] MEDS: Latanoprost 0.005% Ophth Soln 2.5 ML Bottle EYEBOTH SCH (20:39)
[2017-06-30] MEDS: Phenytoin 100 MG Cap.ER PO SCH (20:39)
[2017-07-01] MEDS: Calcium Carbonate/Vitamin D3 1250 MG-200 Unit Tab PO SCH (08:33)
[2017-07-01] MEDS: metFORMIN 500 MG Tab PO SCH ×2 (08:33→17:19)
[2017-07-01] MEDS: Valsartan 160 MG Tab PO SCH (08:34)
[2017-07-01] MEDS: Docusate Sodium 100 MG Cap PO SCH ×2 (08:34→20:26)
[2017-07-01] MEDS: DULoxetine 30 MG Cap PO SCH (08:34)
[2017-07-01] MEDS: Celecoxib 200 MG Cap PO SCH ×2 (08:34→20:28)
[2017-07-01] MEDS: Aspirin 81 MG Tab.EC PO SCH (08:36)
[2017-07-01] MEDS: OXYBUTYNIN TD SCH (08:36)
[2017-07-01] MEDS: Hydrochlorothiazide 25 MG Tab PO SCH (08:36)
[2017-07-01] MEDS: Cholecalciferol (Vitamin D3) 1,000 Unit Tab PO SCH (08:37)
[2017-07-01] MEDS: Acetaminophen 500 MG Tab PO SCH ×3 (08:37→20:28)
[2017-07-01] MEDS: Multivitamins, Therapeutic with Minerals Tab PO SCH (08:38)
[2017-07-01] MEDS: Ondansetron 4 MG Tab.DIS PO PRN (10:21)
[2017-07-01] MEDS: Phenytoin 100 MG Cap.ER PO SCH (20:28)
[2017-07-01] MEDS: Latanoprost 0.005% Ophth Soln 2.5 ML Bottle EYEBOTH SCH (20:28)
[2017-07-02] MEDS: Alendronate 70 MG Tab PO SCH (05:08)
[2017-07-02] MEDS: Calcium Carbonate/Vitamin D3 1250 MG-200 Unit Tab PO SCH (08:32)
[2017-07-02] MEDS: metFORMIN 500 MG Tab PO SCH ×2 (08:32→17:27)
[2017-07-02] MEDS: Celecoxib 200 MG Cap PO SCH ×2 (08:32→20:28)
[2017-07-02] MEDS: Aspirin 81 MG Tab.EC PO SCH (08:33)
[2017-07-02] MEDS: Docusate Sodium 100 MG Cap PO SCH ×2 (08:33→20:28)
[2017-07-02] MEDS: Valsartan 160 MG Tab PO SCH (08:33)
[2017-07-02] MEDS: DULoxetine 30 MG Cap PO SCH (08:33)
[2017-07-02] MEDS: Acetaminophen 500 MG Tab PO SCH ×3 (08:34→20:29)
[2017-07-02] MEDS: Cholecalciferol (Vitamin D3) 1,000 Unit Tab PO SCH (08:34)
[2017-07-02] MEDS: Hydrochlorothiazide 25 MG Tab PO SCH (08:34)
[2017-07-02] MEDS: Multivitamins, Therapeutic with Minerals Tab PO SCH (08:35)
[2017-07-02] MEDS: Ondansetron 4 MG Tab.DIS PO PRN (08:35)
[2017-07-02] MEDS: OXYBUTYNIN TD SCH (10:20)
[2017-07-02] MEDS: fentaNYL 50 MCG/HR Transdermal Patch TRDERM SCH (11:14)
[2017-07-02] MEDS ORDERED: Loperamide 2 MG Tab PO ONE (14:11)
[2017-07-02] MEDS: Latanoprost 0.005% Ophth Soln 2.5 ML Bottle EYEBOTH SCH (20:29)
[2017-07-02] MEDS: Phenytoin 100 MG Cap.ER PO SCH (20:29)
[2017-07-03] MEDS: Calcium Carbonate/Vitamin D3 1250 MG-200 Unit Tab PO SCH (08:29)
[2017-07-03] MEDS: Celecoxib 200 MG Cap PO SCH ×2 (08:29→22:15)
[2017-07-03] MEDS: metFORMIN 500 MG Tab PO SCH ×2 (08:29→17:41)
[2017-07-03] MEDS: DULoxetine 30 MG Cap PO SCH (08:30)
[2017-07-03] MEDS: Docusate Sodium 100 MG Cap PO SCH ×2 (08:30→22:15)
[2017-07-03] MEDS: OXYBUTYNIN TD SCH (08:32)
[2017-07-03] MEDS: Valsartan 160 MG Tab PO SCH (08:32)
[2017-07-03] MEDS: Hydrochlorothiazide 25 MG Tab PO SCH (08:33)
[2017-07-03] MEDS: Aspirin 81 MG Tab.EC PO SCH (08:33)
[2017-07-03] MEDS: Cholecalciferol (Vitamin D3) 1,000 Unit Tab PO SCH (08:34)
[2017-07-03] MEDS: Acetaminophen 500 MG Tab PO SCH ×3 (08:34→22:16)
[2017-07-03] MEDS: Multivitamins, Therapeutic with Minerals Tab PO SCH (08:35)
[2017-07-03] MEDS ORDERED: Loperamide 2 MG Tab PO PRN (09:21)
[2017-07-03] MEDS: Phenytoin 100 MG Cap.ER PO SCH (21:45)
[2017-07-03] MEDS: Latanoprost 0.005% Ophth Soln 2.5 ML Bottle EYEBOTH SCH (22:16)
[2017-07-04] MEDS: Calcium Carbonate/Vitamin D3 1250 MG-200 Unit Tab PO SCH (08:33)
[2017-07-04] MEDS: Acetaminophen 500 MG Tab PO SCH ×3 (08:33→20:56)
[2017-07-04] MEDS: Docusate Sodium 100 MG Cap PO SCH (08:33)
[2017-07-04] MEDS: metFORMIN 500 MG Tab PO SCH (08:33)
[2017-07-04] MEDS: Celecoxib 200 MG Cap PO SCH ×2 (08:33→20:55)
[2017-07-04] MEDS: DULoxetine 30 MG Cap PO SCH (08:33)
[2017-07-04] MEDS: Aspirin 81 MG Tab.EC PO SCH (08:33)
[2017-07-04] MEDS: Valsartan 160 MG Tab PO SCH (08:33)
[2017-07-04] MEDS: Hydrochlorothiazide 25 MG Tab PO SCH (08:33)
[2017-07-04] MEDS: Multivitamins, Therapeutic with Minerals Tab PO SCH (08:34)
[2017-07-04] MEDS: OXYBUTYNIN TD SCH (08:34)
[2017-07-04] MEDS: Cholecalciferol (Vitamin D3) 1,000 Unit Tab PO SCH (08:34)
[2017-07-04] MEDS: Ondansetron 4 MG Tab.DIS PO PRN (09:27)
--- NOTE | 2017-07-04 10:17 | PN ---
DATE SEEN: 07/04/2017 REASON FOR VISIT: Constant pessary diarrhea. HISTORY OF PRESENT ILLNESS: This is an 82-year-old female with sacral insufficiency fractures here in swing bed. She complains of nausea for the last few days at night, in the mornings, and even threw up her pills. No abdominal pain, but has had diarrhea, loose stools 2-3 times a day for five days. She has type 2 diabetes, previously well controlled and the back pain is controlled on 50 mcg of Duragesic patch. REVIEW OF SYSTEMS: Denies fever or chills. No headaches. No shortness of breath. MEDICATIONS: Reviewed. PHYSICAL EXAMINATION: GENERAL: She is not in distress. VITAL SIGNS: Her blood pressure 141/48. She is afebrile. ABDOMEN: Soft and benign. CHEST: Clear. IMPRESSION: 1. Diarrhea. 2. Nausea. 3. Type 2 diabetes. 4. Chronic pain in back. 5. Sacral insufficiency fractures. PLAN: I will plan for Accu-Chek's every morning. Discontinue metformin. I will order Lomotil to use one tablet twice a day for diarrhea, as we wait for the cultures. She denies any blood in the stool. I will also order Accu-Chek's and use sliding scale of insulin instead of the metformin. /[id number] Micheal LEA/YOSHI
[2017-07-04] MEDS: Insulin Aspart 100 Units/ML 3 ML Pen SUBCUT SCH ×3 (10:43→17:38)
[2017-07-04] MEDS: Atropine/Diphenoxylate 0.025-2.5 MG Tab PO SCH ×2 (10:48→20:56)
[2017-07-04] MEDS: Phenytoin 100 MG Cap.ER PO SCH (20:56)
[2017-07-04] MEDS: Latanoprost 0.005% Ophth Soln 2.5 ML Bottle EYEBOTH SCH (20:56)
[2017-07-05] MEDS: Insulin Aspart 100 Units/ML 3 ML Pen SUBCUT SCH ×3 (08:24→17:25)
[2017-07-05] MEDS: Calcium Carbonate/Vitamin D3 1250 MG-200 Unit Tab PO SCH (08:29)
[2017-07-05] MEDS: Celecoxib 200 MG Cap PO SCH ×2 (08:29→21:00)
[2017-07-05] MEDS: DULoxetine 30 MG Cap PO SCH (08:30)
[2017-07-05] MEDS: Valsartan 160 MG Tab PO SCH (08:30)
[2017-07-05] MEDS: OXYBUTYNIN TD SCH (08:31)
[2017-07-05] MEDS: Hydrochlorothiazide 25 MG Tab PO SCH (08:32)
[2017-07-05] MEDS: Aspirin 81 MG Tab.EC PO SCH (08:32)
[2017-07-05] MEDS: Acetaminophen 500 MG Tab PO SCH ×3 (08:33→21:01)
[2017-07-05] MEDS: Cholecalciferol (Vitamin D3) 1,000 Unit Tab PO SCH (08:34)
[2017-07-05] MEDS: Multivitamins, Therapeutic with Minerals Tab PO SCH (08:35)
[2017-07-05] MEDS: fentaNYL 50 MCG/HR Transdermal Patch TRDERM SCH (10:02)
[2017-07-05] MEDS: Atropine/Diphenoxylate 0.025-2.5 MG Tab PO SCH ×2 (10:02→23:15)
[2017-07-05] MEDS: Phenytoin 100 MG Cap.ER PO SCH (21:00)
[2017-07-05] MEDS: Latanoprost 0.005% Ophth Soln 2.5 ML Bottle EYEBOTH SCH (21:01)
[2017-07-06] MEDS: Insulin Aspart 100 Units/ML 3 ML Pen SUBCUT SCH ×3 (08:54→17:24)
[2017-07-06] MEDS: Acetaminophen 500 MG Tab PO SCH ×3 (09:01→20:42)
[2017-07-06] MEDS: Valsartan 160 MG Tab PO SCH (09:01)
[2017-07-06] MEDS: DULoxetine 30 MG Cap PO SCH (09:01)
[2017-07-06] MEDS: Cholecalciferol (Vitamin D3) 1,000 Unit Tab PO SCH (09:01)
[2017-07-06] MEDS: Celecoxib 200 MG Cap PO SCH ×2 (09:01→21:30)
[2017-07-06] MEDS: Multivitamins, Therapeutic with Minerals Tab PO SCH (09:01)
[2017-07-06] MEDS: Hydrochlorothiazide 25 MG Tab PO SCH (09:01)
[2017-07-06] MEDS: Aspirin 81 MG Tab.EC PO SCH (09:02)
[2017-07-06] MEDS: Calcium Carbonate/Vitamin D3 1250 MG-200 Unit Tab PO SCH (09:02)
[2017-07-06] MEDS: OXYBUTYNIN TD SCH (09:05)
[2017-07-06] MEDS: Atropine/Diphenoxylate 0.025-2.5 MG Tab PO SCH ×2 (09:06→20:42)
[2017-07-06] MEDS: Latanoprost 0.005% Ophth Soln 2.5 ML Bottle EYEBOTH SCH (20:41)
[2017-07-06] MEDS: Phenytoin 100 MG Cap.ER PO SCH (20:42)
[2017-07-07] MEDS: Insulin Aspart 100 Units/ML 3 ML Pen SUBCUT SCH ×3 (08:33→17:26)
[2017-07-07] MEDS: Calcium Carbonate/Vitamin D3 1250 MG-200 Unit Tab PO SCH (08:34)
[2017-07-07] MEDS: Celecoxib 200 MG Cap PO SCH ×2 (08:34→20:20)
[2017-07-07] MEDS: DULoxetine 30 MG Cap PO SCH (08:34)
[2017-07-07] MEDS: Valsartan 160 MG Tab PO SCH (08:35)
[2017-07-07] MEDS: OXYBUTYNIN TD SCH (08:38)
[2017-07-07] MEDS: Hydrochlorothiazide 25 MG Tab PO SCH (08:38)
[2017-07-07] MEDS: Aspirin 81 MG Tab.EC PO SCH (08:38)
[2017-07-07] MEDS: Acetaminophen 500 MG Tab PO SCH ×3 (08:39→20:20)
[2017-07-07] MEDS: Atropine/Diphenoxylate 0.025-2.5 MG Tab PO SCH ×2 (08:39→20:20)
[2017-07-07] MEDS: Cholecalciferol (Vitamin D3) 1,000 Unit Tab PO SCH (08:39)
[2017-07-07] MEDS: Multivitamins, Therapeutic with Minerals Tab PO SCH (08:39)
[2017-07-07] MEDS: Phenytoin 100 MG Cap.ER PO SCH (20:20)
[2017-07-07] MEDS: Latanoprost 0.005% Ophth Soln 2.5 ML Bottle EYEBOTH SCH (20:21)
--- NOTE | 2017-07-08 07:44 | PCM.PN ---
- General Info Date of Service: 07/08/17 Admission Dx/Problem (Free Text): Patient without complaints. She denies any hip pain. - Patient Data Vitals - Most Recent: Last Vital Signs Temp 97.8 F 07/07/17 08:35 Pulse 105 H 07/07/17 08:35 Resp 16 07/07/17 08:35 BP 118/50 L 07/07/17 08:35 Pulse Ox 95 07/07/17 08:35 Weight - Most Recent: 145 lb 8 oz I&O - Last 24 Hours: Intake & Output 07/07/17 07/08/17 07/08/17 22:59 06:59 14:59 Intake Total 240 Balance 240 Lab Results Last 24 Hours: Laboratory Results - last 24 hr 07/07/17 07/07/17 07/08/17 Range/Units 11:53 17:23 07:00 POC Glucose 126 H 102 128 H (80-116) mg/dL Med Orders - Current: Current Medications Acetaminophen (Tylenol Extra Strength) 1,000 mg PO TID [facility] Last Admin: 07/07/17 20:20 Dose: 1,000 mg Hydrocodone Bitart/Acetaminophen ([place] 325-10 Mg) 1 tab PO Q6H PRN PRN Reason: Pain Alendronate Sodium (Fosamax) 70 mg PO Q7D@0530 [facility] Last Admin: 07/02/17 05:08 Dose: 70 mg Aspirin (Halfprin) 81 mg PO DAILY [facility] Last Admin: 07/07/17 08:38 Dose: 81 mg Bisacodyl (Dulcolax) 10 mg RECTAL DAILY PRN PRN Reason: Constipation Calcium Carbonate (Calcium Carbonate/Vitamin D 1250 Mg-200 Unit) 1 tab PO DAILY [facility] Last Admin: 07/07/17 08:34 Dose: 1 tab Celecoxib (Celebrex) 200 mg PO BID [facility] Last Admin: 07/07/17 20:20 Dose: 200 mg Cholecalciferol (Vitamin D3) 2,000 units PO DAILY [facility] Last Admin: 07/07/17 08:39 Dose: 2,000 units Diphenoxylate HCl/Atropine (Lomotil 0.025-2.5 Mg) 1 tab PO BID [facility] Last Admin: 07/07/17 20:20 Dose: Not Given Duloxetine HCl (Cymbalta) 30 mg PO DAILY [facility] Last Admin: 07/07/17 08:34 Dose: 30 mg Fentanyl (Duragesic) 50 mcg TRDERM Q72H [facility] Last Admin: 07/05/17 10:02 Dose: 50 mcg Hydrochlorothiazide (Hydrochlorothiazide) 25 mg PO DAILY [facility] Last Admin: 07/07/17 08:38 Dose: 25 mg Insulin Aspart (Novolog) 0 unit SUBCUT TIDMEALS [facility] PRN Reason: Protocol Last Admin: 07/07/17 17:26 Dose: Not Given Latanoprost (Xalatan 0.005% Ophth Soln) 0 ml EYEBOTH BEDTIME [facility] Last Admin: 07/07/17 20:21 Dose: 1 drop Loperamide HCl (Imodium Ad) 2 mg PO Q4H PRN PRN Reason: Diarrhea Lutein (Lutein) 10 mg PO DAILY [facility] Last Admin: 07/07/17 08:39 Dose: 10 mg Multivitamins/Minerals (Vitamins And Minerals) 1 tab PO DAILY [facility] Last Admin: 07/07/17 08:39 Dose: 1 tab Ondansetron HCl (Zofran Odt) 4 mg PO Q6H PRN PRN Reason: Nausea/Vomiting Last Admin: 07/04/17 09:27 Dose: 4 mg Oxybutynin Chloride (Gelnique) 0 gm TD DAILY [facility] Last Admin: 07/07/17 08:38 Dose: 30 gm Phenytoin Sodium (Phenytoin) 200 mg PO BEDTIME [facility] Stop: 07/10/17 21:01 Last Admin: 07/07/17 20:20 Dose: 200 mg Phenytoin Sodium (Phenytoin) 100 mg PO BEDTIME [facility] Stop: 07/24/17 21:01 Polyethylene Glycol (Miralax) 17 gm PO DAILY PRN PRN Reason: Diarrhea Last Admin: 06/20/17 08:29 Dose: 17 gm Solifenacin (Vesicare) 5 mg PO DAILY [facility] Last Admin: 07/07/17 08:39 Dose: 5 mg Valsartan (Diovan) 160 mg PO DAILY [facility] Last Admin: 07/07/17 08:35 Dose: 160 mg Discontinued Medications Hydrocodone Bitart/Acetaminophen ([place] 325-10 Mg) 1 tab PO Q6H [facility] Last Admin: 06/30/17 06:00 Dose: 1 tab Calcitonin [place] (Miacalcin Nasal [place]) 0 ml KYLEIGH DAILY [facility] Last Admin: 06/17/17 08:32 Dose: 1 spray Dexamethasone (Dexamethasone) 8 mg .XX ONETIME ONE Stop: 06/23/17 08:31 Last Admin: 06/23/17 08:45 Dose: 8 mg Docusate Sodium (Colace) 100 mg PO BID [facility] Last Admin: 07/04/17 08:33 Dose: Not Given Fentanyl (Duragesic) 25 mcg TRDERM Q72H [facility] Last Admin: 06/20/17 16:43 Dose: 25 mcg Hydrochlorothiazide (Hydrochlorothiazide) 12.5 mg PO DAILY [facility] Last Admin: 06/17/17 08:29 Dose: 12.5 mg Ibuprofen (Motrin) 400 mg PO BIDMEALS [facility] Stop: 06/18/17 08:01 Last Admin: 06/17/17 08:26 Dose: 400 mg Levetiracetam (Keppra) 750 mg PO BID [facility] Last Admin: 06/17/17 08:31 Dose: 750 mg Loperamide HCl (Imodium Ad) 4 mg PO ONETIME ONE Stop: 07/02/17 14:12 Last Admin: 07/02/17 14:42 Dose: 4 mg Metformin HCl (Glucophage) 500 mg PO BIDMEALS [facility] Last Admin: 07/04/17 08:33 Dose: 500 mg Non-Formulary Medication (Lutein [Lutein]) 6 mg PO DAILY [facility] Last Admin: 06/14/17 11:31 Dose: Not Given Oxycodone HCl (Oxycontin) 10 mg PO BID [facility] Last Admin: 06/17/17 08:47 Dose: 10 mg Oxycodone HCl (Oxycodone) 7.5 mg PO QID [facility] Last Admin: 06/13/17 14:10 Dose: 7.5 mg Oxycodone HCl (Oxycodone) 7.5 mg PO 0600,1300,1700,2200 [facility] Stop: 06/17/17 18:00 Last Admin: 06/17/17 17:17 Dose: 7.5 mg Oxycodone HCl (Oxycodone) 5 mg PO Q6H PRN PRN Reason: BREAKTHROUGH PAIN Last Admin: 06/22/17 12:33 Dose: 5 mg Oxycodone HCl (Oxycodone) 5 mg PO Q6H [facility] Last Admin: 06/23/17 10:55 Dose: Not Given Pantoprazole Sodium (Protonix) 40 mg PO DAILY@0600 [facility] Stop: 06/27/17 06:01 Last Admin: 06/27/17 06:19 Dose: 40 mg Phenytoin Sodium (Phenytoin) 300 mg PO BEDTIME [facility] Stop: 06/26/17 21:01 Last Admin: 06/26/17 20:29 Dose: 300 mg - Exam General: Alert, Oriented, Cooperative Lungs: Clear to Auscultation, Normal Respiratory Effort Cardiovascular: Regular Rate, Regular Rhythm, No Murmurs - Problem List & Annotations (1) Right hip pain SNOMED Code(s): 95344452 Code(s): M25.551 - PAIN IN RIGHT HIP Status: Acute Current Visit: Yes (2) Insufficiency fracture of pelvis SNOMED Code(s): 717879231 Code(s): M84.454A - PATHOLOGICAL FRACTURE, PELVIS, INIT ENCNTR FOR FRACTURE Status: Acute Current Visit: Yes Qualifiers: Encounter type: subsequent encounter (3) Osteoporosis SNOMED Code(s): 85041490 Code(s): M81.0 - AGE-RELATED OSTEOPOROSIS W/O CURRENT PATHOLOGICAL FRACTURE Status: Acute Current Visit: Yes Qualifiers: Osteoporosis type: age-related - Problem List Review Problem List Initiated/Reviewed/Updated: Yes - Assessment Assessment:: 1. Discharge to home with home health, PT/OT. 2. Patient does not want any hydrocodone. 3. Will decrease her Duragesic patch 25 g a day. Talk to her about the fact she might have increasing pain or even withdrawal. 4. She was post be weaned off the seizure medicine. It has not quite have appear but I will stop it. - Plan Plan:: 1. X-ray right hip shows a old ramus fracture. Hip joint looks good with mild arthritis. 2. Will proceed with a right hip bursa injection. Risks and benefits point the patient. She was proceed. Timeout was done and the patient's name and site were identified. Patient was placed in the left side. Took Betadine and clean the right hip 3. Sterile gloves and palpated out the most painful spot. And took a 25-gauge spinal needle with 2 mL of dexamethasone and 8 mL 1% lidocaine and place a down to the bone retracted back and place a medicine. The patient did not have any relief. Blood loss none and complications none. 3. I will proceed to MRI of the right hip and pelvis. 4. Zofran for nausea. 5. Increase Duragesic to 50 g every 3 days.
--- NOTE | 2017-07-08 08:09 | PCM.DCSUM1 ---
Discharge Summary - Hospital Course Free Text/Narrative:: Swing bed course-patient had PT/OT. Then she started having right hip pain. And the have an MRI that showed some muscle tears. She was placed off of her oxycodone and onto Duragesic patch which was titrated up to 50 g and hydrocodone when necessary. Patient pain improved and she did well with PT/OT. She ended up getting off the hydrocodone but continue Duragesic patch. Per neurology they wonder wean off the phenytoin. He was slowly weaned off but not quite before she left. She will be stopped now. She has some diarrhea and then constipation that was treated at the hospital. Diabetes was controlled. Brief History: 82-year-old female admitted to swing bed for rehabilitation. She has a history of chronic back pain was [facility] last week due to pelvic pain and sacral pain and was found to have pelvic insufficiency fractures. This is due to severe osteoporosis. Her pain is managed oxycodone but she still complains of significant pain on movement. To gets down the right leg. She also has a history of type 2 diabetes, hypertension, stable she has been constipated chronically because of acute use. She denies any fever chills or urinary symptoms. She has a history of seizure disorder possibly from a CVA 9 years ago and has been taking Dilantin. This was discontinued the hospitalization [facility] and she is currently not Because it is thought to contribute to osteoporosis. Disposition in view of the history and physical and discharge summary, calcitonin was started for pain control but this was discontinued on discharge because it was not helping. - Discharge Data Discharge Date: 07/08/17 Discharge Disposition: Home, W Home Health Agency 06 Condition: Good - Discharge Diagnosis/Problem(s) (1) Right hip pain SNOMED Code(s): 02196720 ICD Code: M25.551 - PAIN IN RIGHT HIP Status: Acute Current Visit: Yes (2) Insufficiency fracture of pelvis SNOMED Code(s): 612472336 ICD Code: M84.454A - PATHOLOGICAL FRACTURE, PELVIS, INIT ENCNTR FOR FRACTURE Status: Acute Current Visit: Yes Qualifiers: Encounter type: subsequent encounter (3) Osteoporosis SNOMED Code(s): 57943663 ICD Code: M81.0 - AGE-RELATED OSTEOPOROSIS W/O CURRENT PATHOLOGICAL FRACTURE Status: Acute Current Visit: Yes Qualifiers: Osteoporosis type: age-related - Patient Summary/Data Consults: Consultations 06/13/17 12:17 OT Evaluation and Treatment [CONS] Routine Please Evaluate and Treat. OT Reason for Consult: ADL's This query below is only for informational purposes and is not editable. PT Evaluation and Treatment [CONS] Routine Please Evaluate and Treat. PT Reason for Consult: Strengthening This query below is only for informational purposes and is not editable. - Patient Instructions Diet: Diabetic Diet Activity: As Tolerated Driving: Do Not Drive Showering/Bathing: May Shower Notify Provider of: Increased Pain Other/Special Instructions: 1. Recheck with Dr. Padilla in 7-14 days. 2. PT/OT/ home health for strengthening, ADLs, disease management, med management, disease teaching. - Discharge Plan Prescriptions/Med Rec: Alendronate [Fosamax] 70 mg PO Q7D@0530 #4 tablet Celecoxib [CeleBREX] 200 mg PO BID #30 cap DULoxetine [Cymbalta] 30 mg PO DAILY #30 cap fentaNYL [Duragesic] 25 mcg TD Q72H #10 patch.td72 Polyethylene Glycol 3350 [MiraLAX] 17 gm PO DAILY PRN #30 packet PRN Reason: Constipation Home Medications: Home Meds Acetaminophen [Acetaminophen Extra Strength] 1,000 mg PO TID 06/13/17 [History] Aspirin [Halfprin] 81 mg PO DAILY 06/13/17 [History] Calcium Carbonate/Vitamin D3 [Calcium 600-Vit D3 400 Tablet] 1 each PO DAILY 10/29 [History] Cholecalciferol (Vitamin D3) [Vitamin D3] 2,000 unit PO DAILY 06/13/17 [History] Latanoprost [Xalatan 0.005% Ophth Soln] 1 drop EYEBOTH BEDTIME 06/13/17 [History ] Lutein 6 mg PO DAILY 06/13/17 [History] Multivit-Min/FA/Lycopene/Lut [Hm Complete 50+ Tablet] 1 each PO DAILY 06/13/17 [ History] Oxybutynin Chloride [Gelnique] 1 gm TD DAILY 06/13/17 [History] Solifenacin [Vesicare] 5 mg PO DAILY 06/13/17 [History] Valsartan/Hydrochlorothiazide [Diovan Hct 160-12.5 mg Tab] 1 each PO DAILY 06/13 [History] metFORMIN [Glucophage] 500 mg PO BIDMEALS 06/13/17 [History] Alendronate [Fosamax] 70 mg PO Q7D@0530 #4 tablet 07/08/17 [Rx] Celecoxib [CeleBREX] 200 mg PO BID #30 cap 07/08/17 [Rx] DULoxetine [Cymbalta] 30 mg PO DAILY #30 cap 07/08/17 [Rx] Polyethylene Glycol 3350 [MiraLAX] 17 gm PO DAILY PRN #30 packet 07/08/17 [Rx] fentaNYL [Duragesic] 25 mcg TD Q72H #10 patch.td72 07/08/17 [Rx] - Discharge Summary/Plan Comment DC Time >30 min.: Yes - Patient Data Vitals - Most Recent: Last Vital Signs Temp 97.8 F 07/07/17 08:35 Pulse 105 H 07/07/17 08:35 Resp 16 07/07/17 08:35 BP 118/50 L 07/07/17 08:35 Pulse Ox 95 07/07/17 08:35 Weight - Most Recent: 145 lb 8 oz I&O - Last 24 hours: Intake & Output 07/07/17 07/08/17 07/08/17 22:59 06:59 14:59 Intake Total 240 Balance 240 Lab Results - Last 24 hrs: Laboratory Results - last 24 hr 07/07/17 07/07/17 07/08/17 Range/Units 11:53 17:23 07:00 POC Glucose 126 H 102 128 H (80-116) mg/dL Med Orders - Current: Current Medications Acetaminophen (Tylenol Extra Strength) 1,000 mg PO TID [facility] Last Admin: 07/07/17 20:20 Dose: 1,000 mg Hydrocodone Bitart/Acetaminophen ([employer] 325-10 Mg) 1 tab PO Q6H PRN PRN Reason: Pain Alendronate Sodium (Fosamax) 70 mg PO Q7D@0530 [facility] Last Admin: 07/02/17 05:08 Dose: 70 mg Aspirin (Halfprin) 81 mg PO DAILY [facility] Last Admin: 07/07/17 08:38 Dose: 81 mg Bisacodyl (Dulcolax) 10 mg RECTAL DAILY PRN PRN Reason: Constipation Calcium Carbonate (Calcium Carbonate/Vitamin D 1250 Mg-200 Unit) 1 tab PO DAILY [facility] Last Admin: 07/07/17 08:34 Dose: 1 tab Celecoxib (Celebrex) 200 mg PO BID [facility] Last Admin: 07/07/17 20:20 Dose: 200 mg Cholecalciferol (Vitamin D3) 2,000 units PO DAILY [facility] Last Admin: 07/07/17 08:39 Dose: 2,000 units Diphenoxylate HCl/Atropine (Lomotil 0.025-2.5 Mg) 1 tab PO BID [facility] Last Admin: 07/07/17 20:20 Dose: Not Given Duloxetine HCl (Cymbalta) 30 mg PO DAILY [facility] Last Admin: 07/07/17 08:34 Dose: 30 mg Fentanyl (Duragesic) 50 mcg TRDERM Q72H [facility] Last Admin: 07/05/17 10:02 Dose: 50 mcg Hydrochlorothiazide (Hydrochlorothiazide) 25 mg PO DAILY [facility] Last Admin: 07/07/17 08:38 Dose: 25 mg Insulin Aspart (Novolog) 0 unit SUBCUT TIDMEALS [facility] PRN Reason: Protocol Last Admin: 07/07/17 17:26 Dose: Not Given Latanoprost (Xalatan 0.005% [facility] Soln) 0 ml EYEBOTH BEDTIME [facility] Last Admin: 07/07/17 20:21 Dose: 1 drop Loperamide HCl (Imodium Ad) 2 mg PO Q4H PRN PRN Reason: Diarrhea Lutein (Lutein) 10 mg PO DAILY [facility] Last Admin: 07/07/17 08:39 Dose: 10 mg Multivitamins/Minerals (Vitamins And Minerals) 1 tab PO DAILY [facility] Last Admin: 07/07/17 08:39 Dose: 1 tab Ondansetron HCl (Zofran Odt) 4 mg PO Q6H PRN PRN Reason: Nausea/Vomiting Last Admin: 07/04/17 09:27 Dose: 4 mg Oxybutynin Chloride (Gelnique) 0 gm TD DAILY [facility] Last Admin: 07/07/17 08:38 Dose: 30 gm Phenytoin Sodium (Phenytoin) 200 mg PO BEDTIME [facility] Stop: 07/10/17 21:01 Last Admin: 07/07/17 20:20 Dose: 200 mg Phenytoin Sodium (Phenytoin) 100 mg PO BEDTIME [facility] Stop: 07/24/17 21:01 Polyethylene Glycol (Miralax) 17 gm PO DAILY PRN PRN Reason: Diarrhea Last Admin: 06/20/17 08:29 Dose: 17 gm Solifenacin (Vesicare) 5 mg PO DAILY [facility] Last Admin: 07/07/17 08:39 Dose: 5 mg Valsartan (Diovan) 160 mg PO DAILY [facility] Last Admin: 07/07/17 08:35 Dose: 160 mg Discontinued Medications Hydrocodone Bitart/Acetaminophen ([employer] 325-10 Mg) 1 tab PO Q6H [facility] Last Admin: 06/30/17 06:00 Dose: 1 tab Calcitonin [place] (Miacalcin Nasal [place]) 0 ml KYLEIGH DAILY [facility] Last Admin: 06/17/17 08:32 Dose: 1 spray Dexamethasone (Dexamethasone) 8 mg .XX ONETIME ONE Stop: 06/23/17 08:31 Last Admin: 06/23/17 08:45 Dose: 8 mg Docusate Sodium (Colace) 100 mg PO BID [facility] Last Admin: 07/04/17 08:33 Dose: Not Given Fentanyl (Duragesic) 25 mcg TRDERM Q72H [facility] Last Admin: 06/20/17 16:43 Dose: 25 mcg Hydrochlorothiazide (Hydrochlorothiazide) 12.5 mg PO DAILY [facility] Last Admin: 06/17/17 08:29 Dose: 12.5 mg Ibuprofen (Motrin) 400 mg PO BIDMEALS [facility] Stop: 06/18/17 08:01 Last Admin: 06/17/17 08:26 Dose: 400 mg Levetiracetam (Keppra) 750 mg PO BID [facility] Last Admin: 06/17/17 08:31 Dose: 750 mg Loperamide HCl (Imodium Ad) 4 mg PO ONETIME ONE Stop: 07/02/17 14:12 Last Admin: 07/02/17 14:42 Dose: 4 mg Metformin HCl (Glucophage) 500 mg PO BIDMEALS [facility] Last Admin: 07/04/17 08:33 Dose: 500 mg Non-Formulary Medication (Lutein [Lutein]) 6 mg PO DAILY [facility] Last Admin: 06/14/17 11:31 Dose: Not Given Oxycodone HCl (Oxycontin) 10 mg PO BID [facility] Last Admin: 06/17/17 08:47 Dose: 10 mg Oxycodone HCl (Oxycodone) 7.5 mg PO QID [facility] Last Admin: 06/13/17 14:10 Dose: 7.5 mg Oxycodone HCl (Oxycodone) 7.5 mg PO 0600,1300,1700,2200 [facility] Stop: 06/17/17 18:00 Last Admin: 06/17/17 17:17 Dose: 7.5 mg Oxycodone HCl (Oxycodone) 5 mg PO Q6H PRN PRN Reason: BREAKTHROUGH PAIN Last Admin: 06/22/17 12:33 Dose: 5 mg Oxycodone HCl (Oxycodone) 5 mg PO Q6H [facility] Last Admin: 06/23/17 10:55 Dose: Not Given Pantoprazole Sodium (Protonix) 40 mg PO DAILY@0600 [facility] Stop: 06/27/17 06:01 Last Admin: 06/27/17 06:19 Dose: 40 mg Phenytoin Sodium (Phenytoin) 300 mg PO BEDTIME [facility] Stop: 06/26/17 21:01 Last Admin: 06/26/17 20:29 Dose: 300 mg *Q Meaningful Use (DIS) - VTE *Q VTE Criteria *Q: - Stroke *Q Stroke Criteria *Q: - AMI *Q AMI Criteria *Q:
[2017-07-08 08:13] VITALS: BP 136/54
[2017-07-08] MEDS: Insulin Aspart 100 Units/ML 3 ML Pen SUBCUT SCH ×2 (08:23→15:03)
[2017-07-08] MEDS: Calcium Carbonate/Vitamin D3 1250 MG-200 Unit Tab PO SCH (08:25)
[2017-07-08] MEDS: Celecoxib 200 MG Cap PO SCH (08:25)
[2017-07-08] MEDS: Valsartan 160 MG Tab PO SCH (08:26)
[2017-07-08] MEDS: DULoxetine 30 MG Cap PO SCH (08:26)
[2017-07-08] MEDS: OXYBUTYNIN TD SCH (08:29)
[2017-07-08] MEDS: Aspirin 81 MG Tab.EC PO SCH (08:30)
[2017-07-08] MEDS: Atropine/Diphenoxylate 0.025-2.5 MG Tab PO SCH (08:30)
[2017-07-08] MEDS: Hydrochlorothiazide 25 MG Tab PO SCH (08:30)
[2017-07-08] MEDS: Acetaminophen 500 MG Tab PO SCH (08:31)
[2017-07-08] MEDS: Cholecalciferol (Vitamin D3) 1,000 Unit Tab PO SCH (08:32)
[2017-07-08] MEDS: Multivitamins, Therapeutic with Minerals Tab PO SCH (08:32)
[2017-07-08] MEDS: fentaNYL 50 MCG/HR Transdermal Patch TRDERM SCH (10:25)
[2017-07-11] MEDS ORDERED: Phenytoin 100 MG Cap.ER PO SCH (21:00)
== END 2017-07-08 13:00 | disposition home health service (06) | DRG 561 ==
LOC: FB.MS 11:47
PROVIDERS: ADMIT Family Medicine; ATTEND Family Medicine
PROC: 3E0U33Z Introduction of Anti-inflammatory into Joints, Percutaneous Approach (ICD-10-PCS; principal; 2017-06-23)
PROC: 3E0U3BZ Introduction of Anesthetic Agent into Joints, Percutaneous Approach (ICD-10-PCS; 2017-06-23)
DX: M84.454D Pathological fracture, pelvis, subsequent encounter for fracture with routine healing (principal); M54.9 Dorsalgia, unspecified; G89.29 Other chronic pain; K59.03 Drug induced constipation; M81.0 Age-related osteoporosis without current pathological fracture; I10 Essential (primary) hypertension; Z66 Do not resuscitate; E11.9 Type 2 diabetes mellitus without complications; Z79.84 Long term (current) use of oral hypoglycemic drugs; I69.998 Other sequelae following unspecified cerebrovascular disease; Z87.891 Personal history of nicotine dependence; M25.551 Pain in right hip; Z85.42 Personal history of malignant neoplasm of other parts of uterus; S76.011A Strain of muscle, fascia and tendon of right hip, initial encounter; X58.XXXA Exposure to other specified factors, initial encounter; Y92.239 Unspecified place in hospital as the place of occurrence of the external cause; Z79.82 Long term (current) use of aspirin
CPT/HCPCS: 73502-RT; 73721-RT; 82962; 94150; 97110-GO; 97110-GP; 97116-GP; 97161-GP; 97166-GO; 97530-GO; 97530-GO-KX; 97530-GP; 97535-GO; A9270; A9270-GY; J1100

== ENCOUNTER 2017-07-26 23:57 | Inpatient (IN) | payer MEDICARE ==
[2017-07-27] MEDS ORDERED: Pantoprazole 40 MG Vial IVPUSH SCH (01:15)
--- NOTE | 2017-07-27 01:31 | ER ---
DATE SEEN: 07/26/2017 CHIEF COMPLAINT: Fall. HISTORY OF PRESENT ILLNESS: This is an 82-year-old female who fell at the [facility] today. She tripped and fell backwards hitting the head. She complains of headache that is moderate to severe. She further complains of chronic back pain. There was no loss of consciousness. The family reports that she has had frequent falls at least 4 times in the last 2 weeks. PAST MEDICAL HISTORY: Insufficiency fractures of the pelvis, osteoporosis, constipation, type 2 diabetes, chronic back pain. ALLERGIES: Reviewed. MEDICATIONS: Reviewed. REVIEW OF SYSTEMS: She has back pain, nausea, and vomiting. No seizure. No chest pain or shortness of breath. All other systems negative. PHYSICAL EXAMINATION: GENERAL: She is not in any cardiopulmonary distress. VITAL SIGNS: Unremarkable. HEAD: Normocephalic. No signs of trauma. EYES: Pupils are equal and reactive to light. NECK: There is no tenderness to palpation of the cervical spine. LOWER BACK: There is tenderness to the lumbar spine. NEUROLOGIC: Cranial nerves 2 through 12 are grossly intact. She had normal strength in 4 extremities. Ceci Coma Scale is 15/15. CHEST: Clear. ABDOMEN: Soft. LABORATORY DATA: None at this time. IMAGING: CT head revealed bilateral subdural hematoma small, subacute, and CT of the lumbar spine revealed sacral insufficiency fractures and thoracic spine fractures that are old. IMPRESSION: 1. Fall with traumatic subdural hematoma. 2. Chronic back pain from compression fractures. 3. Insufficient fractures of the pelvis. PLAN: My plan is to admit the patient for observation, pain control, and antiemetics. She had coffee-grounds emesis in the emergency room and as such, I started on 40 mg of Protonix. I ordered for CBC and CMP, and will use Dilaudid for pain control and Zofran p.r.n. TIME SEEN: 0116 hours. /[id number] LEONORA/YOSHI
[2017-07-27] MEDS: Sodium Chloride 0.9% 10 ML Syringe FLUSH PRN ×3 (01:45→03:11)
[2017-07-27] MEDS: HYDROmorphone 2 MG/ML SDV IVPUSH PRN ×4 (03:01→15:25)
[2017-07-27] MEDS: Ondansetron 4 MG/2 ML SDV IV PRN ×3 (03:11→15:25)
--- NOTE | 2017-07-27 08:51 | PCM.HP ---
H&P History of Present Illness - General Date of Service: 07/27/17 Admit Problem/Dx: Admission Diagnosis/Problem Admission Diagnosis/Problem Subdural hemorrhage Source of Information: Patient, Family, Old Records History Limitations: Reports: Other (headache due to subdural hematoma) - History of Present Illness Initial Comments - Free Text/Narative: The patient is an 82-year-old female with a complex history over the past few months of multiple falls with pelvic fractures. History is taken from the patient, the EMR, and the patient's family. She's had significant difficulty with pain control, has been taking oxycodone and OxyContin for this. She also has been using ibuprofen twice a day which she thinks she's been fairly consistent with, and also rare aspirin, although she doesn't think she's taken any in the last week. She's had at least 4 falls in the last 2 weeks. 3 have involved blows to the head. About 2 or 3 days ago she had a fall with a blow to the head which resulted in a global headache, moderate. She was able to tolerate it so didn't really do much other than take more pain medicine for it by last evening had another fall where she hit her head had severe head pain. She came into the emergency department and was evaluated by the ER doctor. Was found to have bilateral subdural hematomas with a mixed density in the left subdural hematoma presenting at 8 mm and mixed density in the right subdural hematoma measuring 6 mm. No mass effect or midline shift. Mild encephalomalacia in the left occipital lobe. CT of the lumbar spine showed a mild compression deformity along the superior endplate of L3 which is likely chronic, mild compression deformities along the inferior endplate of T12 also chronic. 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 Patient was then admitted for pain management. Of note she also had a emesis in the emergency department which appeared to be coffee- ground-like and has some dried blood around her mouth. She hasn't had any vomiting at home until the headache occurred. No saray bleeding that she is aware of. Hemoglobin is 10.9 on admission. Has had no further vomiting since she 's been here. Currently patient is awake and alert, complaining of a global headache. Her low back also hurts. She has no other pain. She does feel nauseated but hasn't had any further vomiting. Does have some mild photophobia. Is awake and alert. Context: Reports: Trauma Associated Symptoms: Reports: Headaches Posterior Head Pain Score (Numeric/FACES): 5 - Related Data Allergies/Adverse Reactions: Allergies Allergy/AdvReac Type Severity Reaction Status Date / Time Sulfa (Sulfonamide Allergy Hives Verified 07/27/17 10:00 Antibiotics) Home Medications: Home Meds Acetaminophen [Acetaminophen Extra Strength] 1,000 mg PO TID 06/13/17 [History] Aspirin [Halfprin] 81 mg PO DAILY 06/13/17 [History] Calcium Carbonate/Vitamin D3 [Calcium 600-Vit D3 400 Tablet] 1 each PO DAILY 10/29 [History] Cholecalciferol (Vitamin D3) [Vitamin D3] 2,000 unit PO DAILY 06/13/17 [History] Latanoprost [Xalatan 0.005% Ophth Soln] 1 drop EYEBOTH BEDTIME 06/13/17 [History ] Lutein 6 mg PO DAILY 06/13/17 [History] Multivit-Min/FA/Lycopene/Lut [Hm Complete 50+ Tablet] 1 each PO DAILY 06/13/17 [ History] Oxybutynin Chloride [Gelnique] 1 gm TD DAILY 06/13/17 [History] Solifenacin [Vesicare] 5 mg PO DAILY 06/13/17 [History] Valsartan/Hydrochlorothiazide [Diovan Hct 160-12.5 mg Tab] 1 each PO DAILY 06/13 [History] metFORMIN [Glucophage] 500 mg PO BIDMEALS 06/13/17 [History] Alendronate [Fosamax] 70 mg PO Q7D@0530 #4 tablet 07/08/17 [Rx] DULoxetine [Cymbalta] 30 mg PO DAILY #30 cap 07/08/17 [Rx] Polyethylene Glycol 3350 [MiraLAX] 17 gm PO DAILY PRN #30 packet 07/08/17 [Rx] fentaNYL [Duragesic] 25 mcg TD Q72H #10 patch.td72 07/08/17 [Rx] Celecoxib [CeleBREX] 200 mg PO DAILY 07/27/17 [History] Past Medical History HEENT History: Reports: Cataract Cardiovascular History: Reports: Hypertension Respiratory History: Reports: Asthma Genitourinary History: Reports: Urinary Incontinence 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 T12 compression fracture, bilateral sacral insufficiency fractures Neurological History: Reports: CVA, Seizure Other Neuro History: Taken off dilantin 07/29 due to severe osteoporosis and hx of falls. Endocrine/Metabolic History: Reports: Diabetes, Type II Oncologic (Cancer) History: Reports: Uterine - Infectious Disease History Infectious Disease History: Reports: Chicken Pox, Influenza, Measles, Mumps, Shingles - Past Surgical History Head Surgeries/Procedures: Reports: None Female Surgical History: Reports: Hysterectomy Endocrine Surgical History: Reports: None Neurological Surgical History: Reports: None Musculoskeletal Surgical History: Reports: None, Other (See Below) Other Musculoskeletal Surgeries/Procedures:: Pin in L) Hip. Social & Family History - Family History Family Medical History: Noncontributory - Tobacco Use Smoking Status *Q: Former Smoker Years of Tobacco use: 20 Packs/Tins Daily: 0.5 Used Tobacco, but Quit: Yes Month Tobacco Last Used: unknown Second Hand Smoke Exposure: No - Caffeine Use Caffeine Use: Reports: Coffee Other Caffeine Use: 4 cups/day - Alcohol Use Alcohol Use Frequency: Rarely, Not Used in Over 6 Months - Recreational Drug Use Recreational Drug Use: No - Living Situation & Occupation Living situation: Reports: , Assisted Living (Has 3 sons, son Loyd and Génesis are decision makers.) H&P Review of Systems - Review of Systems: Review Of Systems: See Below General: Reports: No Symptoms HEENT: Reports: Headaches (Posterior, global, started 2-3 days ago after fall, worse after last night fall.) Pulmonary: Reports: No Symptoms Cardiovascular: Reports: No Symptoms Gastrointestinal: Reports: Hematemesis, Nausea Genitourinary: Reports: No Symptoms, Incontinence Musculoskeletal: Reports: Arm Pain (left upper arm sore after fall.), Back Pain Skin: Reports: Bruising Psychiatric: Reports: No Symptoms Neurological: Reports: Headache Hematologic/Lymphatic: Reports: No Symptoms Immunologic: Reports: No Symptoms Exam - Exam Exam: See Below - Vital Signs Vital Signs: Last Vital Signs Temp 36.3 C 07/27/17 04:00 Pulse 92 07/27/17 04:00 Resp 18 07/27/17 04:00 BP 151/69 H 07/27/17 04:00 Pulse Ox 94 L 07/27/17 04:00 Weight: 64.501 kg - Exam General: Alert, Oriented, Mild Distress (headache, patient keeps eyes closed, "hard to think due to pain") HEENT: PERRLA, Conjunctiva Clear, Mucosa Moist & [place], Posterior Pharynx Clear Neck: Supple Lungs: Clear to Auscultation, Normal Respiratory Effort Cardiovascular: Regular Rate, Regular Rhythm, Normal S1, Normal S2 GI/Abdominal Exam: Normal Bowel Sounds, Soft, Non-Tender, No Mass Back Exam: Normal Inspection, Other (low back ache without evidence of trauma) Extremities: Pedal Edema (has bilateral lymphedema, a ~5 cm in diameter slightly reddened area on the left lateral lower leg. ) Skin: Warm, Dry, Intact Neurological: Cranial Nerves Intact Neuro Extensive - Mental Status: Alert, Oriented x3, Normal Cognition, Memory Intact Psychiatric: Alert - Patient Data Lab Results Last 24 hrs: Laboratory Results - last 24 hr 07/27/17 07/27/17 07/27/17 Range/Units 01:15 01:15 01:15 WBC 10.7 (4.5-12.0) X10-3/uL RBC 3.52 (3.23-5.20) x10(6)uL Hgb 10.9 L (11.5-15.5) g/dL Hct 32.0 (30.0-51.3) % MCV 91.0 (80-96) fL MCH 30.9 (27.7-33.6) pg MCHC 34.0 (32.2-35.4) g/dL RDW 12.7 (11.5-15.5) % Plt Count 284 (125-369) X10(3)uL Sodium 126 L (135-145) mmol/L Potassium 3.8 (3.5-5.3) mmol/L Chloride 91 L D (100-110) mmol/L Carbon Dioxide 23 (23-29) mmol/L BUN 23 (8-23) mg/dL Creatinine 0.8 (0.6-1.3) mg/dL Est Cr Clr Drug Dosing TNP Estimated GFR (MDRD) > 60 (>60) BUN/Creatinine Ratio 28.8 H (9-20) Glucose 175 H (80-116) mg/dL Calcium 8.9 (8.6-10.2) mg/dL Troponin I 0.06 (0.02-0.06) NG/ML Result Diagrams: 07/27/17 01:15 07/27/17 01:15 *Q Meaningful Use (ADM) - VTE *Q VTE Criteria *Q: VTE Pharmacological Contraindications *Q: Active Hemorrhage - Stroke *Q Stroke Criteria *Q: Aspirin Contraindications Stroke *Q: Intolerance/Complication - AMI *Q AMI Criteria *Q: - Problem List (1) Subdural hematoma SNOMED Code(s): 95688961 ICD Code: I62.00 - NONTRAUMATIC SUBDURAL HEMORRHAGE, UNSPECIFIED Status: Acute Current Visit: Yes Problem Details: Call in to neurosurgery for recommendations. Dr. Huitron neurosurgery reviewed films and recommended repeat in 24 hours with transfer if worsening condition or expanding bleed. Patient currently clinically stable. Neuro checks every 4 hours, pain management with dilaudid and continue fentanyl patch. Patient taking both celebrex, ASA 81 mg and ibuprofen on final med list review. Likely contributing factor. Reviewed recommendations with patient and family. (2) Hematemesis with nausea SNOMED Code(s): 6914485 ICD Code: K92.0 - HEMATEMESIS Status: Acute Current Visit: Yes Problem Details: NPO, maintenance IVF, IV PPI. Avoid intervention unless patient decompensates. Possible ulcer/gastritis secondary to NSAID use the likely etiology. Monitor hemoglobins. Will recheck 1800. (3) Osteoporosis SNOMED Code(s): 57206340 ICD Code: M81.0 - AGE-RELATED OSTEOPOROSIS W/O CURRENT PATHOLOGICAL FRACTURE Status: Acute Current Visit: No Problem Details: Underlying issue likely contributing to falls and medications leading to this acute event. The patient may require placement in a facility for better management of her pain and prevention of further falls. Problem List Initiated/Reviewed/Updated: Yes Orders Last 24hrs: Active Orders 24 hr Category Date Time Status INR,PT,PROTHROMBIN TIME [COAG] Routine Lab 07/27/17 08:44 Ordered PTT,PARTIAL THROMBOPLSTIN TIME [COAG] Routine Lab 07/27/17 08:44 Ordered Pantoprazole [ProTONIX IV] Med 07/27/17 01:15 Active 40 mg IVPUSH Q24H Medication Orders Hydromorphone HCl (Dilaudid) 0.5 mg IVPUSH Q2H PRN PRN Reason: Pain (severe 7-10) Last Admin: 07/27/17 03:01 Dose: 0.5 mg Ondansetron HCl (Zofran) 4 mg IV Q4H PRN PRN Reason: Nausea/Vomiting Last Admin: 07/27/17 03:11 Dose: 4 mg Pantoprazole Sodium (Protonix Iv) 40 mg IVPUSH Q24H [facility] Last Admin: 07/27/17 01:44 Dose: 40 mg Sodium Chloride (Saline Flush) 10 ml FLUSH ASDIRECTED PRN PRN Reason: Keep Vein Open Last Admin: 07/27/17 03:11 Dose: 10 ml Admin: 07/27/17 03:02 Dose: 10 ml Admin: 07/27/17 01:45 Dose: 10 ml Assessment/Plan Comment:: Discussed CODE STATUS at length with the patient and also with the son and [id number] over the phone. Patient expressed that if her heart were to stop beating or she were to not be able to breathe on her own, she would not want resuscitation. She would want no heroic efforts to bring her back to life. She would not want to be placed on a ventilator. When these comments were reviewed with the family, these were consistent with the patient's previously expressed wishes. Thus the patient is a DNR/DNI. However when discussing further care including hospitalization and surgical intervention for subdural versus comfort care, the patient at this point does think she would want to have everything done in families in agreement with that. Thus up to the point of or intubation the patient would want full cares.
[2017-07-27] MEDS ORDERED: Sodium Chloride 0.9% 1,000 ML IV SCH ×2 (10:00)
[2017-07-27 20:14] VITALS: BP 137/69
--- NOTE | 2017-07-28 13:51 | DISCH ---
DISCHARGE DATE: 07/27/2017 TRANSFER SUMMARY: HISTORY OF PRESENT ILLNESS: Emily is an 82-year-old woman, who previously had a subdural hematoma documented approximately noon today. A repeat 12-hour subdural demonstrates an increase in hyperdense left subdural hematoma from 8 mm to 2.4 cm with a rightward shift of 5 mm. With these changes, the patient was seen and discussions with the neurologist was undertaken with Dr. Huitron. He felt that the patient should be transferred to [place]. Arrangements were made for the patient to be transferred to [facility]. I have spoken to her sons, Ryan and Loyd. They are very supportive, and the patient will be headed to [place]. Other medical problems; incontinence, asthma, L4 compression fracture, T12 compression fracture, sacral insufficiency fracture, CVA, seizures, history of falling, and a recent episode of subdural secondary to fall. She has fallen 4 times in the past week, and has each time, on several of these occasions, experienced blows to her head. She is not on anticoagulants. The patient was transferred by ground ambulance to [place]. /[id number] MACARENA/YOSHI
[2017-07-29] MEDS ORDERED: fentaNYL 25 MCG/HR Transdermal Patch TRDERM SCH (09:00)
== END 2017-07-27 21:10 | DRG 86 ==
LOC: FB.ED 23:57 → FB.MS 07-27 01:02
PROVIDERS: ADMIT Family Medicine; ATTEND Family Medicine
DX: S06.5X0A Traumatic subdural hemorrhage without loss of consciousness, initial encounter (principal); M84.454A Pathological fracture, pelvis, initial encounter for fracture; K92.0 Hematemesis; E11.9 Type 2 diabetes mellitus without complications; R29.6 Repeated falls; Z91.81 History of falling; R40.2412 Glasgow coma scale score 13-15, at arrival to emergency department; W01.10XA Fall on same level from slipping, tripping and stumbling with subsequent striking against unspecified object, initial encounter; Y92.129 Unspecified place in nursing home as the place of occurrence of the external cause; M54.9 Dorsalgia, unspecified; G89.29 Other chronic pain; I10 Essential (primary) hypertension; Z87.891 Personal history of nicotine dependence; Z79.84 Long term (current) use of oral hypoglycemic drugs; Z79.82 Long term (current) use of aspirin; Z66 Do not resuscitate; Z86.73 Personal history of transient ischemic attack (TIA), and cerebral infarction without residual deficits; M81.0 Age-related osteoporosis without current pathological fracture; K59.00 Constipation, unspecified; Z85.42 Personal history of malignant neoplasm of other parts of uterus; Z92.3 Personal history of irradiation; R32 Unspecified urinary incontinence; Z88.2 Allergy status to sulfonamides; Z87.311 Personal history of (healed) other pathological fracture
CPT/HCPCS: 36415; 70450; 72131; 80048; 84484; 85018; 85027; 85610; 85730; 86850; 86900; 86901; 96374; 99283; 99284; C9113; J1170; J2405; J7040; J7050